=== PATIENT | female | born 1995 | race Caucasian/White ===

== ENCOUNTER 2023-06-07 17:58 | Inpatient (IN) | payer OTHER, SELFPAY ==
[2023-06-07] VITALS (8 sets, daily range): BP systolic 123–164; BP diastolic 61–111
--- NOTE | 2023-06-07 14:12 | ED.GENMED ---
History of Present Illness
<Valerie Slater PA-C - Last Filed: 06/07/23 18:41>
General
Chief Complaint: Alcohol Problem
Source: patient and family
Exam Limitations: none
Time Seen by Provider: 06/07/23 14:11
Nursing documentation reviewed up to this point in time: agreed with
Travel History
Have you had any contact with someone who has COVID-19?: No
Do you have any symptoms of coronavirus? Fever > 100 degrees, chills, cough, shortness of breath, sore throat, loss of taste or smell, muscle aches, or headache?: No
History of Present Illness
History of Present Illness:
Patient is a 28-year-old female with past medical history of spinal fusion, herniated disc, asthma, who presents to the emergency department accompanied by her mother for 2 complaints. First, patient reports she is concerned she is going through
alcohol withdrawal. She reports that she typically drinks 9 shots of vodka a day. She reports that she has been doing this for months. She reports that her last drink was approximately 36 hours ago. Patient reports that she has been feeling
increasingly shaky and fidgety. She also endorses headache, nausea, vomiting. Patient also reports seeing visual hallucinations which she says are typically weird shapes. Patient denies any auditory hallucinations. Patient denies any
hallucinations that are telling her to harm herself or anyone else. Patient reports that she was admitted to an outside hospital in March 2023 for alcohol withdrawal. Patient denies any history of alcohol withdrawal seizures. Patient reports
that she is interested in going to an alcohol rehab facility. Patient denies concern for today. Patient denies any drug use.
In addition, patient complains of dental pain. She reports that she had extraction of a tooth to her left lower ajw performed by an oral surgeon 3 weeks ago. She reports that the wound never seemed to heal. She reports she was on 2 courses of
antibiotics, 1 prescribed by her PCP and 1 prescribed by the oral surgeon. She reports the last antibiotic was clindamycin. She reports she never noticed improvement over the site even after taking the clindamycin. She reports that the site is
tender and she can also feel an area of swelling over the gingiva. Patient reports difficulty chewing on that side but denies any facial or throat swelling, denies any difficulty swallowing or shortness of breath. Patient denies any fevers or
chills.
Past History
<Valerie Slater PA-C - Last Filed: 06/07/23 18:41>
Past History
ED Past Medical History: Asthma (Exercised induced), GERD, Psychiatric (Anxiety,), Other (Chronic back pain, lumbar fusion, UTI) and Other
ED Past Surgical History: Orthopedic (Lumbar discectomy, spinal fusion, wrist surgery) and Tonsilectomy
Social History
Tobacco: Smoker
Alcohol: Occasional
Drug: None
Personal: Single
Living: with family
Employment: Employed ([employer])
Family History
Family History: Other (Noncontributory); Negative Early CAD or Sudden
Review of Systems
<Valerie Slater PA-C - Last Filed: 06/07/23 18:41>
Review of Systems
Allergies reviewed?: Yes
All Other Systems: ROS reviewed and negative except as documented in HPI and ROS
Constitutional: Reports chills; Denies fever
EENT: Reports mouth pain
Respiratory: Reports no symptoms; Denies cough or trouble breathing
Cardiac: Reports no symptoms; Denies chest pain
ABD/GI: Reports nausea and vomiting; Denies abdominal pain
: Reports no symptoms
Musculoskeletal: Reports no symptoms
Skin: Reports no symptoms
Neurological: Reports headache
Hematologic/Lymphatic: Reports no symptoms
Psychiatric: Reports hallucinations
Phy Exam
<Valerie Slater PA-C - Last Filed: 06/07/23 18:41>
Physical Exam
Physical Exam:
No significant facial swelling noted, there is evidence of a dental extraction to the left lower jaw, there is no fluctuance or drainable collection, no active drainage, no submandibular edema, there is no ttp at the base of the tongue, no elevation
of the tongue
General Physical Exam
General Presentation: mild distress and other (tearful, temulous)
General Skin: warm and dry
General Habitus: normal
General Mental: alert
General Hydration: appears well hydrated
ENT Exam
ENT Exam: EOMI, pharynx normal, neck supple, normocephalic and other (dry oral mucosa)
Additional ENT: tongue fasciculations noted
Eye Exam
Eye Exam: PERRL, cornea clear and conjunctiva normal
Cardiovascular Exam
Cardiovascular Exam: no edema, no murmur, normal peripheral pulses and tachycardia
Pulmonary Exam
Pulmonary Exam: lungs clear, no respiratory distress, no rales, no crackles, no rhonchi, no stridor, no wheezing and no cough
Gastrointestinal Exam
Gastrointestinal Exam: normal bowel sounds, non tender, soft, no organomegaly, no pulsatile mass and non distended
Neurological Exam
Neurological Exam: alert, oriented x3, no motor deficits and speech normal
Musculoskeletal Exam
Musculoskeletal Exam: full ROM and no edema
Skin Exam
Skin Exam: normal color, warm/dry, no rash and no petechia
Psychiatric Exam
Psychiatric Exam: anxious
Scores
<Valerie Slater PA-C - Last Filed: 06/07/23 18:41>
Withdrawal Assessment of Alcohol
Withdrawal Assessment Completed?: Yes
Nausea and Vomiting: Intermittent nausea with dry heaves
Tactile Disturbances: None
Tremor: Severe, even with arms not extended
Auditory Disturbances: Mild harshness or ability
Paroxysmal Sweats: No sweat visible
Visual Disturbances: Moderately severe hallucinations
Anxiety: Mild anxiety
Headache, Fullness in Head: Mild
Agitation: Moderately fidgety and restless
Orientation and clouding of sensorium: Oriented and can do serial additions
Total CIWA Score: 24
Alcohol Withdrawal Medication Recommendation: Equal to MSAS >11. Lorazepam 2-4mg IV NOW and re-assess q1hr
Course
<Valerie Slater PA-C - Last Filed: 06/07/23 18:41>
Orders/Labs/Results
Orders:
Orders
06/07/23 14:28
Urinalysis Reflex To Culture Urgent
Urine Drug Abuse Screen Urgent
06/07/23 14:30
0.9% Sodium Chloride 1000 ml [Nss] 1,000 ml IV 1,000 mls/hr
Lorazepam [Ativan] 1 mg IV NOW STA
Ondansetron Injectable [Zofran] 4 mg IV NOW STA
06/07/23 14:38
Thiamine Injection 200 mg IV NOW STA
06/07/23 Dinner
Regular
06/07/23 15:50
Alcohol Urgent
Complete Blood Count/With Diff Urgent
Comprehensive Metabolic Panel Urgent
Magnesium Urgent
Phosphorus Urgent
Prothrombin Time Urgent
06/07/23 16:32
Lorazepam [Ativan] 2 mg IV NOW STA
06/07/23 16:54
Clindamycin 600 mg/50 ml [Cleocin] 600 mg in 50 ml IV NOW
06/07/23 17:14
Admit/Transfer Patient As Directed
Co-Sign Provider:
Level of Care: Inpatient admission
Assign to:: IMU- Intermediate Care
Physician / Group: oxana
Diagnosis: alcohol withdrawal
Reason for Hospitalization: alcohol withdrawal
Expected length of stay greater than two midnights?: Yes
ELOS- Estimated Length of Stay in days: 2
I certify the patient meets the requirements for IP care: Yes
06/07/23 17:15
Code Status As Directed
Resuscitation Status: Full Code
06/07/23 17:16
0.9% Sodium Chloride [Nss (Preservative Free)] See Protocol IV PRN PRN
FOLic ACID [Folvite] 1 mg 0.9% Sodium Chloride 50 ml [Nss] 50 ml IV DAILYPRN
Lorazepam [Ativan] 1 mg IV Q1HPRN PRN
Lorazepam [Ativan] 1 mg PO Q2HPRN PRN
Lorazepam [Ativan] 2 mg IV Q1HPRN PRN
Phenobarbital Sodium [Phenobarbital] 260 mg 0.9% Sodium Chloride 100 ml [Nss] 100 ml IV NOW
MSAS SCORE As Directed
MSAS Score 0-4: Repeat MSAS every 2 hours until 0-4 for three consecutive assessments, then every 4 hours x 48
hours.
MSAS Score 5-7: For MILD withdrawl symptoms. Repeat MSAS and RASS every 2 hours
MSAS Score 8-11: For MODERATE withdrawal symptoms. Repeat MSAS and RASS every 1 hour. Consider ICU or IMU
level of care.
MSAS Score > 11: For SEVERE withdrawal symptoms. Repeat MSAS and RASS every 1 hour. Notify provider, consider
ICU level of care.
MSAS Additional Instructions: If no improvement or no decrease in score from severe to moderate within 12
hours, consult psychiatry
MSAS Notify Provider: Notify provider if patient requires more than 10 mg of Lorazepam in eight hour period.
06/07/23 17:19
HCG, Serum Qualitative Screen Urgent
Lipase Urgent
06/07/23 17:20
Test Result ONCE
06/07/23 18:27
0.9% Sodium Chloride 1000 ml [Nss] 1,000 ml IV 100 mls/hr
Acetaminophen [Tylenol] 650 mg PO Q4HPRN PRN
HYDROmorphone [Dilaudid] 0.5 mg IV Q4HPRN PRN
Lurasidone HCl [Latuda] 40 mg PO QPM
Ondansetron Injectable [Zofran] 4 mg IV Q6HPRN PRN
06/07/23 18:27
ORAL MAXILLO FACIAL CONSULT Routine
Consulting Provider: Heather Thomas
Was physician already notified: Yes
Activity As Directed
Activity Level: As Tolerated
Vital Signs As Directed
Frequency: Per unit guidelines
DX Deep Vein Thrombosis Video Routine
06/07/23 20:00
Duloxetine Delayed Release [Cymbalta Delayed Release] 20 mg PO BID
Heparin 5,000 units SC Q12
Pantoprazole [Protonix] 40 mg PO BID
lamotrigine 25 mg PO BID
06/08/23 06:00
Complete Blood Count/With Diff IN AM
Comprehensive Metabolic Panel IN AM
06/08/23 08:00
CT Facial Bones W/ Iv Contrast Routine
Reason For Exam: tooth abscess
FOLic ACID [Folvite] 1 mg PO DAILY
Phenobarbital Sodium [Phenobarbital] 97.5 mg IV TID
norethindrone-e.estradiol-iron [Aurovela Fe 1-20 (28)] 1 tablet PO DAILY
valacyclovir 1,000 mg PO DAILY
06/10/23 08:00
Phenobarbital [Luminal] 64.8 mg PO TID
06/12/23 08:00
Phenobarbital [Luminal] 32.4 mg PO TID
Abnormal Lab Results
06/07/23
15:50
WBC 19.4 H 10^3/uL
(4.8-10.8)
MCH 32.6 H pg
(27.0-31.0)
Abs Immat Gran (auto) 0.1 H 10^3/uL
(0-0.05)
Absolute Neuts (auto) 16.5 H 10^3/uL
(1.4-6.5)
Absolute Monos (auto) 1.3 H 10^3/uL
(0.1-0.6)
Neutrophils % 85.0 H %
(42.2-75.2)
Lymphocytes % 7.2 L %
(20.5-51.1)
Sodium 131 L mmol/L
(135-145)
Chloride 97 L mmol/L
(98-107)
BUN 18 H mg/dl
(7-17)
Creatinine 1.1 H mg/dL
(0.6-1.0)
Glucose 121 H mg/dl
(70-99)
AST 51 H U/L
(14-36)
ALT 42 H U/L
(0-35)
Total Protein 8.3 H g/dl
(6.3-8.2)
06/07/23 15:50
06/07/23 15:50
Vital Signs
Initial and Last Documented VS:
Initial Vital Signs
Pulse Resp BP Pulse Ox
121 16 164/111 100
06/07/23 13:55 06/07/23 13:55 06/07/23 13:55 06/07/23 13:55
Last Documented Vital Signs
Pulse Resp BP Pulse Ox
113 28 128/61 99
06/07/23 16:45 06/07/23 16:45 06/07/23 16:00 06/07/23 16:45
Faheemlt;Tan Herman, DO - Last Filed: 06/07/23 16:35>
Orders/Labs/Results
Orders:
Orders
06/07/23 14:28
Urinalysis Reflex To Culture Urgent
Urine Drug Abuse Screen Urgent
06/07/23 14:30
0.9% Sodium Chloride 1000 ml [Nss] 1,000 ml IV 1,000 mls/hr
Lorazepam [Ativan] 1 mg IV NOW STA
Ondansetron Injectable [Zofran] 4 mg IV NOW STA
06/07/23 14:38
Thiamine Injection 200 mg IV NOW STA
06/07/23 Dinner
Regular
06/07/23 15:50
Alcohol Urgent
Complete Blood Count/With Diff Urgent
Comprehensive Metabolic Panel Urgent
Magnesium Urgent
Phosphorus Urgent
Prothrombin Time Urgent
06/07/23 16:32
Lorazepam [Ativan] 2 mg IV NOW STA
06/07/23 16:54
Clindamycin 600 mg/50 ml [Cleocin] 600 mg in 50 ml IV NOW
06/07/23 17:14
Admit/Transfer Patient As Directed
Co-Sign Provider:
Level of Care: Inpatient admission
Assign to:: IMU- Intermediate Care
Physician / Group: oxana
Diagnosis: alcohol withdrawal
Reason for Hospitalization: alcohol withdrawal
Expected length of stay greater than two midnights?: Yes
ELOS- Estimated Length of Stay in days: 2
I certify the patient meets the requirements for IP care: Yes
06/07/23 17:15
Code Status As Directed
Resuscitation Status: Full Code
06/07/23 17:16
0.9% Sodium Chloride [Nss (Preservative Free)] See Protocol IV PRN PRN
FOLic ACID [Folvite] 1 mg 0.9% Sodium Chloride 50 ml [Nss] 50 ml IV DAILYPRN
Lorazepam [Ativan] 1 mg IV Q1HPRN PRN
Lorazepam [Ativan] 1 mg PO Q2HPRN PRN
Lorazepam [Ativan] 2 mg IV Q1HPRN PRN
Phenobarbital Sodium [Phenobarbital] 260 mg 0.9% Sodium Chloride 100 ml [Nss] 100 ml IV NOW
MSAS SCORE As Directed
MSAS Score 0-4: Repeat MSAS every 2 hours until 0-4 for three consecutive assessments, then every 4 hours x 48
hours.
MSAS Score 5-7: For MILD withdrawl symptoms. Repeat MSAS and RASS every 2 hours
MSAS Score 8-11: For MODERATE withdrawal symptoms. Repeat MSAS and RASS every 1 hour. Consider ICU or IMU
level of care.
MSAS Score > 11: For SEVERE withdrawal symptoms. Repeat MSAS and RASS every 1 hour. Notify provider, consider
ICU level of care.
MSAS Additional Instructions: If no improvement or no decrease in score from severe to moderate within 12
hours, consult psychiatry
MSAS Notify Provider: Notify provider if patient requires more than 10 mg of Lorazepam in eight hour period.
06/07/23 17:19
HCG, Serum Qualitative Screen Urgent
Lipase Urgent
06/07/23 17:20
Test Result ONCE
06/07/23 18:27
0.9% Sodium Chloride 1000 ml [Nss] 1,000 ml IV 100 mls/hr
Acetaminophen [Tylenol] 650 mg PO Q4HPRN PRN
HYDROmorphone [Dilaudid] 0.5 mg IV Q4HPRN PRN
Lurasidone HCl [Latuda] 40 mg PO QPM
Ondansetron Injectable [Zofran] 4 mg IV Q6HPRN PRN
06/07/23 18:27
ORAL MAXILLO FACIAL CONSULT Routine
Consulting Provider: Heather Thomas
Was physician already notified: Yes
Activity As Directed
Activity Level: As Tolerated
Vital Signs As Directed
Frequency: Per unit guidelines
DX Deep Vein Thrombosis Video Routine
06/07/23 20:00
Duloxetine Delayed Release [Cymbalta Delayed Release] 20 mg PO BID
Heparin 5,000 units SC Q12
Pantoprazole [Protonix] 40 mg PO BID
lamotrigine 25 mg PO BID
06/08/23 06:00
Complete Blood Count/With Diff IN AM
Comprehensive Metabolic Panel IN AM
06/08/23 08:00
CT Facial Bones W/ Iv Contrast Routine
Reason For Exam: tooth abscess
FOLic ACID [Folvite] 1 mg PO DAILY
Phenobarbital Sodium [Phenobarbital] 97.5 mg IV TID
norethindrone-e.estradiol-iron [Aurovela Fe 1-20 (28)] 1 tablet PO DAILY
valacyclovir 1,000 mg PO DAILY
06/10/23 08:00
Phenobarbital [Luminal] 64.8 mg PO TID
06/12/23 08:00
Phenobarbital [Luminal] 32.4 mg PO TID
Abnormal Lab Results
06/07/23
15:50
WBC 19.4 H 10^3/uL
(4.8-10.8)
MCH 32.6 H pg
(27.0-31.0)
Abs Immat Gran (auto) 0.1 H 10^3/uL
(0-0.05)
Absolute Neuts (auto) 16.5 H 10^3/uL
(1.4-6.5)
Absolute Monos (auto) 1.3 H 10^3/uL
(0.1-0.6)
Neutrophils % 85.0 H %
(42.2-75.2)
Lymphocytes % 7.2 L %
(20.5-51.1)
Sodium 131 L mmol/L
(135-145)
Chloride 97 L mmol/L
(98-107)
BUN 18 H mg/dl
(7-17)
Creatinine 1.1 H mg/dL
(0.6-1.0)
Glucose 121 H mg/dl
(70-99)
AST 51 H U/L
(14-36)
ALT 42 H U/L
(0-35)
Total Protein 8.3 H g/dl
(6.3-8.2)
06/07/23 15:50
06/07/23 15:50
Vital Signs
Initial and Last Documented VS:
Initial Vital Signs
Pulse Resp BP Pulse Ox
121 16 164/111 100
06/07/23 13:55 06/07/23 13:55 06/07/23 13:55 06/07/23 13:55
Last Documented Vital Signs
Pulse Resp BP Pulse Ox
113 28 128/61 99
06/07/23 16:45 06/07/23 16:45 06/07/23 16:00 06/07/23 16:45
<Valerie Slater PA-C - Last Filed: 06/07/23 18:41>
*Critical Care Note
Total Time (30-74mins, 75-104mins- exclusive of procedures): Not Applicable
<Valerie Slater PA-C - Last Filed: 06/07/23 18:41>
Update Note
Update Note:
28 yo female p/w alcohol withdrawal as well as concern for left dental infection that has not improved despite 2 rounds of oral antibiotics. Alcohol withdrawal symptoms including headache, nausea, vomiting, hallucinations, shakiness. On arrival,
pt is hypertensive, tachycardic. On exam, pt is tremulous, there is no evidence of drainable dental abscess at this time. Labs were obtained and are notable for a leukocytosis of 19.4 with left shift, hypernatremia to 131, mildly elevated LFTs.
Pt given a total of 3mg of Ativan IV, ondansetron, IVF, thiamine with improvement in her withdrawal symptoms. Pt also given IV clindamycin for presumed dental infection. Pt will require admission for further treatment. Pt and her mother aware of
the plan and agree.
ED Attending Note
<Valerie Slater PA-C - Last Filed: 06/07/23 18:41>
-
Portions of this chart may have been created with voice recognition software.� Occasional wrong word or��sound alike� substitutions may have occurred due to the inherent limitations of voice recognition software.
<Tan Herman DO - Last Filed: 06/07/23 16:35>
ED Attending Note
Patient seen and examined by attending physician: Yes
ED Attending Note:
I have reviewed and agree with history and treatment plan by Valerie Slater. My exam reveals 28-year-old female with tachycardia, appears jittery, appears alcohol withdrawal. Left lower jaw with recent dental extraction, no pus or abscess noted, no
swelling. Admit for treatment of alcohol withdraw and dental infection.
Discharge Plan
Departure
Patient Disposition: Admit
Date of Disposition: 06/07/23
Time of Disposition: 16:49
Presentation/result/management discussed w/ accepting MD/DO: Hospitalist
Discharge Problem:
Alcohol withdrawal, Dental infection
Interventions
Interventions:
*Risk Screen - Suicide Last Done: 06/07/23 14:17
*General Assessment Last Done: 06/07/23 18:37
*Neglect/Abuse Screening Last Done: 06/07/23 14:17
ED- Fall Risk Assessment Last Done: 06/07/23 18:37
*ED COVID-19 Vaccine History Last Done: 06/07/23 13:55
*Nursing Disposition Last Done: 06/07/23 18:37
ED- Neurological Assessment Last Done: 06/07/23 14:43
ED-Psychological Assessment Last Done: 06/07/23 14:43
Discharge Date and Time
Discharge Date/Time: 06/07/23 18:37
[2023-06-07] MEDS: NSS 1000 IV ×2 (15:27→19:05)
[2023-06-07] MEDS: ZOFRAN 4 MG IV (15:28)
[2023-06-07] MEDS: ATIVAN 1 MG IV ×3 (15:28→22:37)
[2023-06-07] MEDS: THIAMINE INJECTION 200 MG IV (15:28)
[2023-06-07 15:59] LABS: % Basophils 0.5 % (0-2); % Eosinophils 0.1 % (0-6); % Immature Granulocytes 0.4 % (0-0.5); % Lymphocytes 7.2 % (20.5-51.1); % Monocytes 6.8 % (1.7-9.3); Absolute Basophils 0.1 10^3/uL (0-0.2); Absolute Immature Granulocytes 0.1 10^3/uL (0-0.05); Absolute Lymphocytes 1.4 10^3/uL (1.2-3.4); Absolute Monocytes 1.3 10^3/uL (0.1-0.6); Absolute Neutrophils 16.5 10^3/uL (1.4-6.5); Hematocrit 42.1 % (37.0-47.0); Hemoglobin 14.8 g/dL (12.0-16.0); Mean Corp Hgb Conc. 35.2 g/dL (33.0-37.0); Mean Corpuscular Hgb 32.6 pg (27.0-31.0); Mean Corpuscular Volume 92.7 fL (81.0-99.0); Mean Platelet Volume 9.7 fL (7.4-10.4); Nucleated Red Blood Cells % 0 %; Platelet Count 345 10^3/uL (130-400); Red Blood Cell Count 4.54 10^6/uL (4.20-5.40); White Blood Cell Count 19.4 10^3/uL (4.8-10.8)
[2023-06-07 16:07] LABS: INR 1.05; PT 13.5 Sec (11.4-14.6)
[2023-06-07 16:20] LABS: ALT (SGPT) 42 U/L (0-35); AST (SGOT) 51 U/L (14-36); Alkaline Phosphatase 79 U/L (38-126); Blood Urea Nitrogen 18 mg/dl (7-17); Calcium 9.7 mg/dl (8.4-10.2); Carbon Dioxide 24 mmol/L (22-30); Chloride 97 mmol/L (98-107); Glucose 121 mg/dl (70-99); Magnesium 2.2 mg/dl (1.6-2.3); Phosphorus 3.4 mg/dl (2.5-4.5); Sodium 131 mmol/L (135-145); Total Protein 8.3 g/dl (6.3-8.2); eGFR > 60.00
[2023-06-07 16:21] LABS: Alcohol None Detected
[2023-06-07] MEDS: ATIVAN 2 MG IV (16:56)
--- NOTE | 2023-06-07 17:22 | HPS.HSE ---
Addendum entered and electronically signed by Roland Leonard MD 06/07/23 17:48:
Consulted maxillofacial surgery and ordered CT with IV contrast.
Original Note:
Family Physician
-
Family Physician: Gaey Campos
Chief Complaint
-
alcohol withdrawal
History of Present Illness
28-year-old female past medical history of lumbar spinal fusion, herniated disc, asthma, GERD, exercise-induced anxiety, multiple psychiatric issues including OCD/anxiety/bipolar, presenting for concern for alcohol withdrawal. She typically drinks
9 shots of vodka per day which she has been doing for months. Her last drink was 36 hours ago. She has been increasingly shaky and fidgety over the past few days. She also has headache, nausea and vomiting and blurry vision. She does have some
abdominal bloating. She reports seeing visual hallucinations which are typically weird shapes. She denies any auditory hallucinations. She states she was admitted to an outside hospital in March 2023 for alcohol withdrawal. Denies any history
of alcohol withdrawal seizures. She denies any drug use. She is interested in rehab.
Patient also complains of dental pain. She had extraction of tooth in her left lower jaw performed by an oral surgeon 3 weeks ago. Oral surgeon is at [facility] oral surgery. This was complicated by tooth abscess as per x-ray
performed by the oral surgeon and she was treated with a course of antibiotics. She completed a second course of clindamycin by her primary care physician which she finished a week ago. Swelling has improved a little bit but she continues to have
significant amount of pain. She has chills but denies fever. She does have drainage. She has pain with chewing on that side. Denies any shortness of breath.
Medical History
Past Medical History
Past Medical History: Reports Other (Orthopedic (Lumbar discectomy, spinal fusion, wrist surgery) and Tonsilectomy)
Past Surgical History: Reports None
Social History
Tobacco: Non-smoker
Alcohol: Daily
Drug: None
Family History
Family History: Not pertinent
Allergies / Home Medications
Allergies reflects when Allergies were last updated in [facility].
Home Medications with original date entered in [facility]
Allergy/Medication List:
Allergies
Allergy/AdvReac Type Severity Reaction Status Date / Time
penicillin V Allergy Severe Hives Verified 04/06/23 15:07
cephalexin [From Keflex] Allergy Rash Verified 04/06/23 15:07
peanut Allergy Hives Verified 04/06/23 15:07
Home Medications
duloxetine 20 mg capsule,delayed release 20 mg PO BID 06/07/23
lamotrigine 25 mg tablet 25 mg PO BID 06/07/23
lurasidone 40 mg tablet 40 mg PO QPM 06/07/23
norethindrone 1 mg-ethinyl estradiol 20 mcg (21)-iron 75 mg (7) tablet (Aurovela Fe 1-20 (28)) 1 tab PO DAILY 06/07/23
valacyclovir 1 gram tablet 1,000 mg PO DAILY 06/07/23
Review of Systems
-
History Source: Patient
A 12 point ROS was completed and negative except as noted: Yes
Constitutional: Reports See HPI
EENT: Reports No Symptoms
Respiratory: Reports No Symptoms
Cardiac: Reports No Symptoms
Abdomen/GI: Reports See HPI
: Reports No Symptoms
Musculoskeletal: Reports No Symptoms
Skin: Reports No Symptoms
Neurological: Reports No Symptoms
Endocrine: Reports No Symptoms
Hematologic/Lymphatic: Reports No Symptoms
Psych: Reports No Symptoms
Physical Exam
Vital Signs
Vital Signs
Pulse Resp BP Pulse Ox
113 28 128/61 99
06/07/23 16:45 06/07/23 16:45 06/07/23 16:00 06/07/23 16:45
Physical Exam
General: Well Developed, Well Nourished and No Apparent Distress
HEENT: NormoCephalic, Moist mucous membranes and Atraumatic
Respiratory: Clear
Cardiac: S1/S2 and Regular Rhythm; No Murmur or Rub
GI: Soft, Non Tender, Non Distended and Normal Bowel Sounds; No Organomegaly
Rectal: Deferred by Provider
Musculoskeletal: No Clubbing, No Cyanosis and No Edema
Skin: No Rash
Neuro: Nonfocal/grossly intact
Laboratory Results
-
06/07/23 15:50
06/07/23 15:50
Laboratory Results
PT 13.5 Sec (11.4-14.6) 06/07/23 15:50
INR 1.05 06/07/23 15:50
Total Bilirubin 1.0 mg/dl (0.2-1.3) 06/07/23 15:50
AST 51 U/L (14-36) H 06/07/23 15:50
ALT 42 U/L (0-35) H 06/07/23 15:50
Alkaline Phosphatase 79 U/L (38-126) 06/07/23 15:50
Data Reviewed
-
Lab Data: Labs Reviewed by me
Old Records: Reviewed
Impression/Plan
-
IMPRESSION:
PLAN:
# Alcohol withdrawal
# Transaminitis secondary to alcohol use
-Thiamine and folate
-IV fluids
-Start phenobarbital protocol
-Alcohol withdrawal protocol
-Zofran
-Check beta-hCG given age
# Possible alcoholic gastritis
-Check lipase
-Protonix 40 twice daily for possible alcoholic gastritis
# Recent tooth extraction complicated by tooth abscess
-Start IV clindamycin
-Check panelipse x-ray and depending on result may require maxillofacial CT/oral surgery consult
-Dilaudid for pain
# Acute kidney injury prerenal
-IV fluids
History of herniated disc status post spinal fusion
Exercise-induced asthma
GERD
-On omeprazole daily
Anxiety/OCD/bipolar disorder
-Continue duloxetine, lamotrigine, lurasidone,
History of cold sores in mouth
-Continue valacyclovir
Full code
DVT prophylaxis�heparin
Regular diet
[2023-06-07] MEDS: CLEOCIN 50 IV (17:51)
--- NOTE | 2023-06-07 18:37 | CON.ORS ---
Consultation - Oral Surgery
Subjective
28year old female with past medical history of asthma, GERD, anxiety, OCD, bipolar disorder presented for alcoholic withdrawal and consult for possible infection from recent dental extraction. Patient reports that she had an extraction of tooth #19
completed at [facility] about 3 weeks ago due to an infection which she took antibiotics for twice. She reports the area still hurts and she thinks it is not healing normally since food it getting stuck in the hole and
there is a tender spot on the front when she touches it. She denies swelling of her face or neck, no dysphagia, dyspnea, orthopnea at home. She is tolerating PO. Patient denies symptoms of acute infection. No nausea, vomiting, fever or chills.
Past Medical History
Past Medical History: Asthma, GERD and Psychiatric
Past Surgical History: Orthopedic, Tonsilectomy and Other (spinal surgery)
Family History: Not Pertinent
Alcohol: Daily
Drug: None
Tobacco: Non-smoker
Medications / Allergies
Allergies
Allergy/AdvReac Type Severity Reaction Status Date / Time
penicillin V Allergy Severe Hives Verified 04/06/23 15:07
cephalexin [From Keflex] Allergy Rash Verified 04/06/23 15:07
peanut Allergy Hives Verified 04/06/23 15:07
Active Medications
Generic Name Dose Route Start Last Admin
Trade Name Freq PRN Reason Stop Dose Admin
Acetaminophen 650 mg 06/07/23 18:27
Acetaminophen 325 Mg Tablet PO 07/05/23 18:26
Q4HPRN PRN
mild pain/VIEYRA/temp> 100.4F
Duloxetine HCl 20 mg 06/07/23 20:00
Duloxetine Delayed Release 20 Mg Capsule PO 07/05/23 19:59
BID LANDON
Folic Acid 1 mg 06/08/23 08:00
Folic Acid 1 Mg Tablet PO 07/06/23 07:59
DAILY LANDON
Heparin Sodium 5,000 units 06/07/23 20:00
Heparin 5,000 Units/Ml 1 Ml Vial SC 07/05/23 19:59
Q12 LANDON
Hydromorphone HCl 0.5 mg 06/07/23 18:27
Hydromorphone 0.5 Mg/0.5 Ml Syringe IV 06/21/23 18:26
Q4HPRN PRN
severe pain
Phenobarbital Sodium 260 mg/ 104 mls @ 416 mls/hr 06/07/23 17:16
Sodium Chloride IV 06/07/23 17:30
NOW STA
Folic Acid 1 mg/ Sodium 50.2 mls @ 200.8 mls/hr 06/07/23 17:16
Chloride IV 07/05/23 17:15
DAILYPRN PRN
if NPO
Sodium Chloride 1,000 mls @ 100 mls/hr 06/07/23 18:27
Nss IV
.Q10H LANDON
Lorazepam 1 mg 06/07/23 17:16
Lorazepam 1 Mg Tablet PO 07/05/23 17:15
Q2HPRN PRN
MSAS 5-7
Lorazepam 1 mg 06/07/23 17:16
Lorazepam 2 Mg/Ml Vial IV 07/05/23 17:15
Q1HPRN PRN
MSAS 8-11
Lorazepam 2 mg 06/07/23 17:16
Lorazepam 2 Mg/Ml Vial IV 07/05/23 17:15
Q1HPRN PRN
MSAS > 11
Lurasidone HCl 40 mg 06/07/23 18:27
Lurasidone Hcl 40 Mg Tablet PO 07/05/23 18:26
QPM LANDON
Non-Formulary Medication 25 mg 06/07/23 20:00
Lamotrigine PO 07/05/23 19:59
BID LANDON
Non-Formulary Medication 1 tablet 06/08/23 08:00
Norethindrone-E.Estradiol-Iron [Aurovela Fe 1-20 (28)] PO 07/06/23 07:59
DAILY LANDON
Non-Formulary Medication 1,000 mg 06/08/23 08:00
Valacyclovir PO 07/06/23 07:59
DAILY LANDON
Ondansetron HCl 4 mg 06/07/23 18:27
Ondansetron 4 Mg/2 Ml Vial IV 07/05/23 18:26
Q6HPRN PRN
nausea and vomiting
Pantoprazole Sodium 40 mg 06/07/23 20:00
Pantoprazole 40 Mg Delayed Release Tablet PO 07/05/23 19:59
BID LANDON
Phenobarbital Sodium 64.8 mg 06/10/23 08:00
Phenobarbital 32.4 Mg Tablet PO 06/11/23 22:01
TID LANDON
Phenobarbital Sodium 32.4 mg 06/12/23 08:00
Phenobarbital 32.4 Mg Tablet PO 06/13/23 22:01
TID LANDON
Phenobarbital Sodium 97.5 mg 06/08/23 08:00
Phenobarbital (65 Mg/Ml) 1 Ml Vial IV 06/09/23 22:01
TID LANDON
Sodium Chloride 0 ml 06/07/23 17:16
Sodium Chloride 0.9% (Preservative Free) 10 Ml Vial IV 07/05/23 17:15
PRN PRN
To dilute IV Ativan
Protocol
Review of Systems
Eyes: Reports No Symptoms; Denies Blurry Vision or Double Vision
ENT: Reports Tooth Pain (pain and tenderness over recent extraction site)
Cardiovascular: Reports No Symptoms
Respiratory: Reports No Symptoms
Genitourinary: Reports Deferred
Neurological: Reports No Symptoms
Psychological: Reports Anxiety
Endocrine: Reports No Symptoms
Vital Signs
Pulse Resp BP Pulse Ox
113 28 128/61 99
06/07/23 16:45 06/07/23 16:45 06/07/23 16:00 06/07/23 16:45
Physical Exam
General: Awake, Alert, Oriented x 3 and Not in Acute Distress
Extra-oral Exam: V2 10/10 Bilaterally, V3 10/10 Bilaterally, Temporomandibular Joint Functions Smoothly & Evenly and Other (No extraoral induration or fluctuance); Negative Edema (No extraoral facial, submandibular, submental or cervical edema),
Erythema (No extraoral facial, submandibular, submental or cervical erythema), Tenderness to Palpation (No extraoral facial, submandibular, submental or cervical tenderness to palpation), Lymphadenopathy, Clicking, Popping, Crepitus or Signs of
Acute Infection
Intra-oral Exam: Erythema (localized erythema over the buccal of site #19 due to sharp edge of alveolar bone over site #19 with tenderness to palpation but no signs of infection), Missing Teeth (extraction of tooth #19 recently and healing well and
normally), Floor of Mouth Soft Without Elevation, Oropharynx Clear, Mallampati Class 1 and Other (Extraction site #19 healing normally and well with pink healthy attached gingiva around the site without purulent discharge from site, small area of
erythema with tenderness to palpation along the buccal of site #19 due to sharp edge of alveolar bone in area, no exposed buccal or lingual bone at #19); Negative Edema (No intraoral edema ), Signs of Acute Infection (No signs of intraoral
infection, no purulent discharge from any area, floor of the mouth and left mandibular vestibule shows no induration, fluctuance or elevation), Purulent Discharge, Gingival Abscesses or Fistulas, Induration or Fluctuance
Imaging Results
CT scan facial bone with IV Contrast 06/08/2023 shows
There is a lucency and defect in the left mandible, in the area of recent tooth extraction. The lucency measures approximately 1.6 cm CC x 1.0 AP x 1.2 cm TRV and has relatively smooth margins. There is a tiny density along the lateral aspect of the
opening - which is the bony spicule/sharp edge of alveolar bone and also a small calcification seen within the area of extraction, suggesting a tiny residual loose body - which is normal interproximal bone that is loose in the extraction site.
Minimal soft tissue swelling and decreased attenuation lateral to the left mandible� at the site of the tooth extraction� suggests the possibility of a small amount of fluid lateral to the defect, and may represent a tiny fluid collection or abscess
measuring 1 x 0.5 cm. Seen on axial image 16 series 201.
No other fluid collection. No other focal area of abnormality. No other soft tissue mass. No significant adenopathy.
No fracture or dislocation. The sinuses are clear. Visualized calvarium intact.
IMPRESSION:
The lucency and defect in the left mandible in the area of recent tooth extraction is fairly well-defined as outlined above. There is a tiny density centrally in the defect, suggesting the possibility of a residual loose body which may cause
persistent irritation or inflammation.
Additionally there is the possibility of a small fluid collection lateral to the defect which may represent a small abscess measuring [address] Results
[address] scan facial bone with IV Contrast 06/08/2023 shows
There is a lucency and defect in the left mandible, in the area of recent tooth extraction. The lucency measures approximately 1.6 cm CC x 1.0 AP x 1.2 cm TRV and has relatively smooth margins. There is a tiny density along the lateral aspect of the
opening - which is the bony spicule/sharp edge of alveolar bone and also a small calcification seen within the area of extraction, suggesting a tiny residual loose body - which is normal interproximal bone that is loose in the extraction site.
Minimal soft tissue swelling and decreased attenuation lateral to the left mandible� at the site of the tooth extraction� suggests the possibility of a small amount of fluid lateral to the defect, and may represent a tiny fluid collection or abscess
measuring 1 x 0.5 cm. Seen on axial image 16 series 201.
No other fluid collection. No other focal area of abnormality. No other soft tissue mass. No significant adenopathy.
No fracture or dislocation. The sinuses are clear. Visualized calvarium intact.
IMPRESSION:
The lucency and defect in the left mandible in the area of recent tooth extraction is fairly well-defined as outlined above. There is a tiny density centrally in the defect, suggesting the possibility of a residual loose body which may cause
persistent irritation or inflammation.
Additionally there is the possibility of a small fluid collection lateral to the defect which may represent a small abscess measuring 1 x 0.5 cm.
Assessment / Plan
28year old female consulted for possible infection from recent dental extraction at site #19. Based on physical and radiographic examination, there is not intraoral or extraoral dental infection and extraction site #19 is healing well and normally
with 1 small area of sharp alveolar bone along the buccal of site #19 that can be smoothed out to reduce tenderness to the area for patient which can be done as an outpatient after discharge. The CT scan facial bone with IV Contrast 06/08/2023 shows
the recent extraction site #19 which shows a tiny density along the lateral aspect which is the bony spicule/sharp edge of alveolar bone that is appreciated on exam where there is localized tenderness over this area and erythema but does not have
any induration, fluctuance or signs of an abscess or cellulitis in the area. There is also a small calcification seen within the area of extraction which is normal interproximal bone that is loose in the extraction site and not concerning for
osteomyelitis or any other infection. The soft tissue swelling at the lateral aspect of the left mandible is considered normal after having a recent extraction completed and there is no abscess on the left mandible but likely inflammation due to the
sharp edge of alveolar bone or bony spicule in the area of site #19. The sharp edge of alveolar bone along the buccal of site #19 can be smoothed out and removed to reduce tenderness to the area for patient which can be done as an outpatient after
discharge. I explained this to the patient and recommended for her to follow-up with the oral surgeon who performed the procedure due to continuity of surgical care. There is no intraoral cause for the patient's leukocytosis.
1. No intraoral cause of leukocytosis and no intraoral infection, recent extraction site #19 healing well
2. Patient can follow-up as outpatient for localized alveoplasty along buccal of site #19 to smooth the bone in the area for comfort and to reduce inflammation in the area
Data Reviewed
Diagnostic Imaging: Image personally visualized and interpreted, Report Reviewed by me and Discussed with Physician
CT Scan: Image personally visualized and interpreted, Report Reviewed by me and Discussed with Physician
Labs: Labs Reviewed by me, Discussed with Physician and Discussed with Patient
[2023-06-07] MEDS: PROTONIX 40 MG PO (19:51)
[2023-06-07] MEDS: HEPARIN 5000 UNITS SC (19:53)
[2023-06-07] MEDS: PHENOBARBITAL 104 MG IV (21:07)
[2023-06-07] MEDS: LAMICTAL 25 MG PO (21:11)
[2023-06-07] MEDS: LATUDA 40 MG PO (21:11)
[2023-06-07] MEDS: CYMBALTA DELAYED RELEASE 20 MG PO (21:11)
[2023-06-07 23:34] LABS: HCG, Serum Qualitative Screen Negative; Lipase 62 U/L (23-300)
[2023-06-07] MEDS: TYLENOL 650 MG PO (23:50)
[2023-06-08] VITALS (11 sets, daily range): BP systolic 105–149; BP diastolic 67–103
--- NOTE | 2023-06-08 03:10 | PTCARENOTE ---
Pt's HR:100s, oob to br x1 minimal assistance. Pt denies dizziness or sob while oob. Voided 150ml, jessenia urine. Pt's HR 120s while ambulating. Pt c/o severe L tooth and 'whole body pain'. Medicated with prn dilaudid. call jin within reach. see MSAS
documentation.
[2023-06-08] MEDS: NSS 1000 IV ×2 (03:51→15:04)
[2023-06-08] MEDS: ZOFRAN 4 MG IV (03:52)
[2023-06-08] MEDS: DILAUDID 0.5 MG IV (03:53)
[2023-06-08 04:44] LABS: % Basophils 0.8 % (0-2); % Eosinophils 0.5 % (0-6); % Immature Granulocytes 0.2 % (0-0.5); % Lymphocytes 20.1 % (20.5-51.1); % Monocytes 12.1 % (1.7-9.3); % Neutrophils 66.3 % (42.2-75.2); Absolute Basophils 0.1 10^3/uL (0-0.2); Absolute Eosinophils 0.1 10^3/uL (0-0.7); Absolute Lymphocytes 2.6 10^3/uL (1.2-3.4); Absolute Monocytes 1.6 10^3/uL (0.1-0.6); Absolute Neutrophils 8.7 10^3/uL (1.4-6.5); Hematocrit 35.1 % (37.0-47.0); Hemoglobin 12.3 g/dL (12.0-16.0); Mean Corpuscular Hgb 32.7 pg (27.0-31.0); Mean Corpuscular Volume 93.4 fL (81.0-99.0); Mean Platelet Volume 9.9 fL (7.4-10.4); Nucleated Red Blood Cells % 0 %; Platelet Count 262 10^3/uL (130-400); Red Blood Cell Count 3.76 10^6/uL (4.20-5.40); Red Cell Dist. Width 12.1 % (11.5-14.5); White Blood Cell Count 13.1 10^3/uL (4.8-10.8)
[2023-06-08 04:51] LABS: Urine Albumin 1+ (Neg - Trace); Urine Bilirubin 1+ (Negative); Urine Character Clear (Clear); Urine Color Yellow; Urine Glucose Negative (Negative); Urine Ketone 1+ (Negative); Urine Leukocyte Trace (Negative); Urine Nitrite Negative (Negative); Urine Occult Blood Negative (Negative); Urine Specific Gravity 1.025 (<1.030); Urine Urobilinogen Negative (Neg - 1+)
[2023-06-08 05:17] LABS: Amphetamines Negative (Negative); Barbiturates Positive (Negative); Benzodiazepines Positive (Negative); Buprenorphine Negative (Negative); Cocaine Negative (Negative); Marijuana Negative (Negative); Methadone Negative (Negative); Methamphetamines Negative (Negative); Opiates Negative (Negative); Phencyclidine Negative (Negative); Tricyclic Antidepressants Negative (Negative)
[2023-06-08 05:37] LABS: ALT (SGPT) 35 U/L (0-35); AST (SGOT) 48 U/L (14-36); Alkaline Phosphatase 63 U/L (38-126); Blood Urea Nitrogen 19 mg/dl (7-17); Calcium 8.6 mg/dl (8.4-10.2); Carbon Dioxide 20 mmol/L (22-30); Chloride 104 mmol/L (98-107); Estimated Creatinine Clearance 71 ml/min; Glucose 95 mg/dl (70-99); Potassium 4.1 mmol/L (3.5-5.1); Sodium 132 mmol/L (135-145); Total Bilirubin 1.1 mg/dl (0.2-1.3); Total Protein 6.7 g/dl (6.3-8.2); eGFR > 60.00
[2023-06-08] MEDS: ATIVAN 1 MG IV (06:10)
[2023-06-08 06:27] LABS: Fentanyl, Urine Negative (Negative)
[2023-06-08 06:35] LABS: Urine Mucus Moderate; Urine Squamous Cell >30 /LPF (Few)
[2023-06-08 06:36] LABS: Urine Bacteria Few (Negative); Urine Red Blood Cell 0-2 /HPF (0-2)
--- NOTE | 2023-06-08 07:58 | W.PN.HOSP.TC ---
Today's Communication/Plan
-
see A/P
Assessment / Plan
Assessment / Plan
28-year-old female past medical history of lumbar spinal fusion, herniated disc, asthma, GERD, exercise-induced asthma, multiple psychiatric issues including OCD/anxiety/bipolar, presented for concern of alcohol withdrawal.�She typically drinks 9
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
abdominal bloating.� She reported seeing visual hallucinations which are typically weird shapes.�She denied any auditory hallucinations.� She was admitted to an outside hospital in March 2023 for alcohol withdrawal.� Denied any history of alcohol
withdrawal seizures.� She denied any drug use.� She is interested in rehab.
Patient also complains of dental pain.�She had extraction of tooth in her left lower jaw performed by an oral surgeon 3 weeks [employer].� Oral surgeon is at [facility] oral surgery.� This was complicated by tooth abscess as per x-ray
performed by the oral surgeon and she was treated with a course of antibiotics.�She completed a second course of clindamycin by her primary care physician which she finished a week ago [employer].�Swelling has improved a little bit but she continued to
have significant amount of pain.� She has chills but denies fever.� She does have drainage.� She has pain with chewing on that side.� Denies any shortness of breath.
A/P:
# Alcohol withdrawal
# Transaminitis secondary to alcohol use
Cont Thiamine and folate, IV fluids
Started phenobarbital protocol, cont
Cont Alcohol withdrawal protocol
Zofran PRN
beta-hCG negative
CM CS for outpt services
# Possible alcoholic gastritis
Protonix 40 twice daily for possible alcoholic gastritis
lipase WNL at 62
# Recent tooth extraction complicated by tooth abscess
Check CT facial bone with IV contrast.
Consult maxillofacial surgery
Cont IV clindamycin
Dilaudid for pain
# Acute kidney injury prerenal
SCr today 1.2, was 1.1 on admission, baseline 0.6
IV fluids
# History of herniated disc status post spinal fusion
# Exercise-induced asthma
# GERD
On omeprazole daily
# Anxiety/OCD/bipolar disorder
Continue duloxetine, lamotrigine, lurasidone,
# History of cold sores in mouth
Continue valacyclovir
Full code
DVT prophylaxis�heparin
clears for now, ADAT
d/w RN
Anticipated Discharge: > 48 hours
Subjective/Interval History
-
Date of Service: June 08, 2023
Objective Data
-
Labs:
Laboratory Results
06/08/23
04:08
WBC 13.1 H
Hgb 12.3
Hct 35.1 L
Plt Count 262 D
Sodium 132 L
Potassium 4.1
Chloride 104
Carbon Dioxide 20 L
BUN 19 H
Creatinine 1.2 H
Glucose 95
Calcium 8.6
Total Bilirubin 1.1
AST 48 H
ALT 35
Alkaline Phosphatase 63
Vital Signs:
Vital Signs
Temp Pulse Resp BP Pulse Ox
37.0 C 113 14 134/94 94
06/08/23 03:37 06/08/23 06:15 06/08/23 06:15 06/08/23 06:00 06/08/23 06:15
I&O
06/07/23 06/08/23 06/09/23
06:59 06:59 06:59
Intake Total 1200 / 1200
Output Total 150 / 150
Balance 1050 / 1050
Review of Systems
-
Abdomen/GI: Reports Nausea and Vomiting
Physical Exam
-
General: Well Developed, Well Nourished, No Apparent Distress, Conversant and Obese; Negative Respiratory Distress
HEENT: Normocephalic, Atraumatic, Nose Appears Normal and Ears Appear Normal; Negative Oxygen
Respiratory: Clear to Auscultation and Non Labored Respirations; Negative Accessory Resp Muscle Use
Cardiac: Regular Rhythm, S1/S2 and Tachycardic
GI: Soft, Nontender, Nondistended and Normal Bowel Sounds
Skin: Warm and Dry
Neuro: Awake, Alert and Oriented
Psych: Calm and Intact Judgement/Insight
Data Reviewed
-
Labs: Labs Reviewed by me
[2023-06-08] MEDS: ATIVAN 1 MG PO ×3 (08:24→21:01)
[2023-06-08] MEDS: LAMICTAL 25 MG PO ×2 (08:25→19:39)
[2023-06-08] MEDS: PROTONIX 40 MG PO ×2 (08:25→19:39)
[2023-06-08] MEDS: VALTREX 1000 MG PO (08:25)
[2023-06-08] MEDS: CYMBALTA DELAYED RELEASE 20 MG PO ×2 (08:25→19:39)
[2023-06-08] MEDS: FOLVITE 1 MG PO (08:25)
[2023-06-08] MEDS: PHENOBARBITAL 97.5 MG IV ×3 (08:25→21:01)
[2023-06-08] MEDS: HEPARIN 5000 UNITS SC ×2 (08:26→19:38)
[2023-06-08] MEDS: UNASYN IV ×3 (10:54→21:01)
[2023-06-08] MEDS: TYLENOL 650 MG PO (10:58)
--- NOTE | 2023-06-08 11:46 | PTCARENOTE ---
Pt was rec'd from plant operator/shift supervisor RN at 07:15, MSAS scores as documented, medicated with Ativan PRN, see MAR for times. Sent for CT of facial bones this am to eval for abscess. Pt resting when undisturbed, safe environment maintained.
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
--- NOTE | 2023-06-08 14:57 | PTCARENOTE ---
Pt refuses mutiple offers to get out of bed and sit in chair. States to this RN, 'I am very depressed.' Plan of care discussed with patient and attending Dr. Wells this morning upon rounds. Pt tolerated her breakfast tray of clears, asking to have
regular diet reinstated, Dr. Wells in agreement.
Mother called in to ask for update, this RN provided basic nursing update over the phone. Pt assisted to bedside to commode to urinate, unsteady on feet, some impulsive behavior noted. Bed alarm activated at this time. Continuing to monitor closely.
[2023-06-08] MEDS: ULTRAM 25 MG PO (17:39)
--- NOTE | 2023-06-08 21:15 | PTCARENOTE ---
Received pt at change of shift. Pt has notable tremors; no diaphoresis; anxious. MSAS score of 5. Administered 1 mg PO Ativan per order. Pt keeps awakening upset d/t dreams that 'feel too real' and are scaring pt. Pt able to fall back asleep.
Bed alarm on. Pt resting in bed with call jin in reach.
[2023-06-09] VITALS (11 sets, daily range): BP systolic 106–147; BP diastolic 74–106
[2023-06-09] MEDS: NSS 1000 IV ×2 (01:40→15:28)
[2023-06-09] MEDS: DILAUDID 0.5 MG IV ×5 (01:40→20:23)
[2023-06-09] MEDS: ULTRAM 25 MG PO ×3 (04:16→18:24)
[2023-06-09] MEDS: UNASYN IV ×4 (04:16→23:08)
[2023-06-09 05:23] LABS: Hematocrit 32.4 % (37.0-47.0); Hemoglobin 11.2 g/dL (12.0-16.0); Mean Corp Hgb Conc. 34.6 g/dL (33.0-37.0); Mean Corpuscular Volume 95.6 fL (81.0-99.0); Mean Platelet Volume 10.2 fL (7.4-10.4); Platelet Count 218 10^3/uL (130-400); Red Blood Cell Count 3.39 10^6/uL (4.20-5.40); Red Cell Dist. Width 11.8 % (11.5-14.5)
[2023-06-09] MEDS: ATIVAN 1 MG PO ×2 (05:26→18:25)
[2023-06-09 05:55] LABS: ALT (SGPT) 26 U/L (0-35); AST (SGOT) 33 U/L (14-36); Albumin 3.3 g/dl (3.5-5.0); Alkaline Phosphatase 53 U/L (38-126); Blood Urea Nitrogen 13 mg/dl (7-17); Calcium 8.2 mg/dl (8.4-10.2); Carbon Dioxide 21 mmol/L (22-30); Chloride 101 mmol/L (98-107); Estimated Creatinine Clearance 77 ml/min; Glucose 77 mg/dl (70-99); Magnesium 2.3 mg/dl (1.6-2.3); Potassium 3.8 mmol/L (3.5-5.1); Sodium 132 mmol/L (135-145); Total Bilirubin 0.7 mg/dl (0.2-1.3); Total Protein 5.9 g/dl (6.3-8.2); eGFR > 60.00
[2023-06-09] MEDS: FOLVITE 1 MG PO (07:37)
[2023-06-09] MEDS: LAMICTAL 25 MG PO ×2 (07:37→20:20)
[2023-06-09] MEDS: PHENOBARBITAL 97.5 MG IV ×3 (07:38→23:08)
[2023-06-09] MEDS: PROTONIX 40 MG PO ×2 (07:38→20:20)
[2023-06-09] MEDS: VALTREX 1000 MG PO (07:38)
[2023-06-09] MEDS: CYMBALTA DELAYED RELEASE 20 MG PO ×2 (07:38→20:20)
[2023-06-09] MEDS: HEPARIN 5000 UNITS SC ×2 (07:39→20:20)
--- NOTE | 2023-06-09 08:32 | W.PN.HOSP.TC ---
Addendum entered and electronically signed by Mellissa Wells MD 06/09/23 14:03:
# Alcohol Abuse, unclear dependence state or not
# Alcohol Withdrawal
Original Note:
Today's Communication/Plan
-
see A/P
Assessment / Plan
Assessment / Plan
28-year-old female past medical history of lumbar spinal fusion, herniated disc, asthma, GERD, exercise-induced asthma, multiple psychiatric issues including OCD/anxiety/bipolar, presented for concern of alcohol withdrawal.�She typically drinks 9
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
abdominal bloating.� She reported seeing visual hallucinations which are typically weird shapes.�She denied any auditory hallucinations.� She was admitted to an outside hospital in March 2023 for alcohol withdrawal.� Denied any history of alcohol
withdrawal seizures.� She denied any drug use.� She is interested in rehab.
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
have significant amount of pain.� She has chills but denies fever.� She does have drainage.� She has pain with chewing on that side.� Denies any shortness of breath.
A/P:
# Alcohol withdrawal
# Transaminitis secondary to alcohol use, resolved
Cont Thiamine and folate, IV fluids
Started phenobarbital protocol, cont
Cont Alcohol withdrawal protocol
Zofran PRN
Diet advanced to regular per pt request, pt tolerating well
beta-hCG negative
awaiting [facility], patient looking for inpatient D&A treatment facility.
# Possible alcoholic gastritis
Protonix 40 twice daily for possible alcoholic gastritis
lipase WNL at 62
# Recent tooth extraction complicated by tooth abscess
# Improved leucocytosis, suspect some component of reactive leucocytosis
CT facial bone reviewed.
Appreciate maxillofacial surgery input, No intraoral cause of leukocytosis and no intraoral infection, recent extraction site #19 healing well. Recc to follow-up as outpatient for localized alveoplasty
Cont IV Unasyn
Dilaudid for pain
# Acute kidney injury prerenal
SCr today 1.1, was 1.1 on admission, baseline 0.6
cont IV fluids
# History of herniated disc status post spinal fusion
# Exercise-induced asthma
# GERD
On omeprazole daily
# Anxiety/OCD/bipolar disorder
Continue duloxetine, lamotrigine, lurasidone,
# History of cold sores in mouth
Continue valacyclovir
Full code
DVT prophylaxis�heparin
Dispo:�awaiting [facility], patient looking for inpatient D&A treatment facility.
Anticipated Discharge: > 48 hours
Subjective/Interval History
-
Date of Service: June 09, 2023
Objective Data
-
Labs:
Laboratory Results
06/09/23
04:31
WBC 11.0 H
Hgb 11.2 L
Hct 32.4 L
Plt Count 218
Sodium 132 L
Potassium 3.8
Chloride 101
Carbon Dioxide 21 L
BUN 13
Creatinine 1.1 H
Glucose 77
Calcium 8.2 L
Total Bilirubin 0.7
AST 33
ALT 26
Alkaline Phosphatase 53
Vital Signs:
Vital Signs
Temp Pulse Resp BP Pulse Ox
37.1 C 101 23 117/81 95
06/09/23 04:09 06/09/23 06:00 06/09/23 06:00 06/09/23 06:00 06/09/23 06:00
I&O
06/08/23 06/09/23 06/10/23
06:59 06:59 06:59
Intake Total 1200 / 1200 2160 / 2160
Output Total 150 / 150 300 / 300
Balance 1050 / 1050 1860 / 1860
Review of Systems
-
Abdomen/GI: Reports Nausea
Physical Exam
-
General: Well Developed, Well Nourished, No Apparent Distress, Conversant and Obese; Negative Respiratory Distress
HEENT: Normocephalic, Atraumatic, Nose Appears Normal and Ears Appear Normal; Negative Oxygen
Respiratory: Clear to Auscultation and Non Labored Respirations; Negative Accessory Resp Muscle Use
Cardiac: Regular Rhythm, S1/S2 and Tachycardic
GI: Soft, Nontender, Nondistended and Normal Bowel Sounds
Skin: Warm and Dry
Neuro: Awake, Alert and Oriented
Psych: Calm and Intact Judgement/Insight
Data Reviewed
-
Labs: Labs Reviewed by me
--- NOTE | 2023-06-09 08:50 | PN.CDI ---
CDI
- -
CDI:
Physician Documentation Request
Admit Date: 06/07/23 17:58
Dear Doctor Priscilla,
Patient admitted with alcohol withdrawal.
ER Physician Documentation: 'she typically drinks 9 shots of vodka a day...feeling increasingly shaky and fidgety. She also endorses headache, nausea, vomiting. Patient also reports seeing visual hallucinations which she says are typically weird
shapes.'
If possible, please provide further specificity as outlined below:
1. Please specify the pattern of use, include all that apply:
- Use, with or without abuse and/or dependence
- Abuse with or without dependence
- Dependence
2. Please identify any associated manifestations
- Intoxication: with or without delirium, with or without perceptual disturbance
- With substance induced psychotic disorder: with delusions and/or hallucinations
- Withdrawal
- With substance induced sleep disorder and/or sexual dysfunction
- Other, please specify
- No manifestations
Use of terms such as suspected, likely, concern for, or probable (associated with a specific diagnosis that is being evaluated, monitored, or treated as if it exists) are acceptable and can be coded in the inpatient setting, when documented at the
time of discharge.
Thank you,
Brianna Wilson RN, BSN
CDI Specialist
Available via [place] text
Please use your independent medical judgment in providing your response.
[2023-06-09] MEDS: ATIVAN 1 MG IV (11:31)
--- NOTE | 2023-06-09 12:18 | CM ---
Chart reviewed. Met with pt and her mother at bedside
Seeking In-patient D&A treatment - working with [facility]
Received call from Disha at [facility] requesting clinicals be faxed
Faxed to [phone]
[facility] cont to follow
CM will continue to follow
--- NOTE | 2023-06-09 21:39 | PTCARENOTE ---
Received pt at change of shift. Pt c/o pain throughout her whole body rating 8/10. Discussed other methods of pain control and pt was not interested. States she does get some pain relief from the current PRN medications ordered but it keeps
returning and is concerned as to why she is experiencing this pain. MSAS 3; anxious and restless. Pt got washed up for bed - partial bath and oral care - states she feels better after. Resting in bed with call jin in reach.
[2023-06-09] MEDS: TORADOL 15 MG IV (23:48)
[2023-06-10] VITALS (13 sets, daily range): BP systolic 98–160; BP diastolic 59–112
[2023-06-10] MEDS: ATIVAN 1 MG PO ×2 (01:03→10:29)
[2023-06-10] MEDS: NSS 1000 IV (04:09)
[2023-06-10] MEDS: UNASYN IV ×4 (04:09→20:48)
[2023-06-10] MEDS: DILAUDID 0.5 MG IV ×5 (04:09→20:48)
[2023-06-10 05:05] LABS: ALT (SGPT) 23 U/L (0-35); AST (SGOT) 35 U/L (14-36); Albumin 3.6 g/dl (3.5-5.0); Alkaline Phosphatase 50 U/L (38-126); Blood Urea Nitrogen 13 mg/dl (7-17); Calcium 8.5 mg/dl (8.4-10.2); Carbon Dioxide 21 mmol/L (22-30); Chloride 103 mmol/L (98-107); Estimated Creatinine Clearance 77 ml/min; Glucose 84 mg/dl (70-99); Magnesium 2.3 mg/dl (1.6-2.3); Potassium 4.2 mmol/L (3.5-5.1); Sodium 134 mmol/L (135-145); Total Bilirubin 0.6 mg/dl (0.2-1.3); Total Protein 6.3 g/dl (6.3-8.2); eGFR > 60.00
[2023-06-10 05:27] LABS: Hematocrit 32.5 % (37.0-47.0); Hemoglobin 11.3 g/dL (12.0-16.0); Mean Corp Hgb Conc. 34.8 g/dL (33.0-37.0); Mean Corpuscular Hgb 32.8 pg (27.0-31.0); Mean Corpuscular Volume 94.2 fL (81.0-99.0); Mean Platelet Volume 9.9 fL (7.4-10.4); Platelet Count 198 10^3/uL (130-400); Red Blood Cell Count 3.45 10^6/uL (4.20-5.40); Red Cell Dist. Width 11.8 % (11.5-14.5); White Blood Cell Count 8.3 10^3/uL (4.8-10.8)
[2023-06-10] MEDS: VALTREX 1000 MG PO (08:18)
[2023-06-10] MEDS: FOLVITE 1 MG PO (08:18)
[2023-06-10] MEDS: LUMINAL 64.7999999999999972 MG PO ×3 (08:19→22:06)
[2023-06-10] MEDS: CYMBALTA DELAYED RELEASE 20 MG PO ×2 (08:19→20:48)
[2023-06-10] MEDS: PROTONIX 40 MG PO ×2 (08:19→20:48)
[2023-06-10] MEDS: LAMICTAL 25 MG PO ×2 (08:19→20:48)
[2023-06-10] MEDS: HEPARIN 5000 UNITS SC ×2 (08:19→20:49)
--- NOTE | 2023-06-10 08:53 | W.PN.HOSP.TC ---
Today's Communication/Plan
-
see A/P
Assessment / Plan
Assessment / Plan
28-year-old female past medical history of lumbar spinal fusion, herniated disc, asthma, GERD, exercise-induced asthma, multiple psychiatric issues including OCD/anxiety/bipolar, presented for concern of alcohol withdrawal.�She typically drinks 9
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
abdominal bloating.� She reported seeing visual hallucinations which are typically weird shapes.�She denied any auditory hallucinations.� She was admitted to an outside hospital in March 2023 for alcohol withdrawal.� Denied any history of alcohol
withdrawal seizures.� She denied any drug use.� She is interested in rehab.
Patient also complains of dental pain.�She had extraction of tooth in her left lower jaw performed by an oral surgeon 3 weeks ECHOCARDIOLOGIST.� Oral surgeon is at [facility] oral surgery.� This was complicated by tooth abscess as per x-ray
performed by the oral surgeon and she was treated with a course of antibiotics.�She completed a second course of clindamycin by her primary care physician which she finished a week ago ECHOCARDIOLOGIST.�Swelling has improved a little bit but she continued to
have significant amount of pain.� She has chills but denies fever.� She does have drainage.� She has pain with chewing on that side.� Denies any shortness of breath.
A/P:
# Alcohol withdrawal
# Transaminitis secondary to alcohol use, resolved
Cont Thiamine and folate, IV fluids
Started phenobarbital protocol, cont
Cont Alcohol withdrawal protocol
Zofran PRN
Diet advanced to regular, pt tolerating well
beta-hCG negative
[facility] following
# Possible alcoholic gastritis
Protonix 40 twice daily for possible alcoholic gastritis
lipase WNL at 62
# Recent tooth extraction complicated by tooth abscess
# Improved leucocytosis, suspect some component of reactive leucocytosis
CT facial bone reviewed.
Appreciate maxillofacial surgery input, No intraoral cause of leukocytosis and no intraoral infection, recent extraction site #19 healing well. Recc to follow-up as outpatient for localized alveoplasty
Cont IV Unasyn
Dilaudid for pain
# Acute kidney injury prerenal
SCr today 1.1, was 1.1 on admission, baseline 0.6
observe off IV fluid
# History of herniated disc status post spinal fusion
# Exercise-induced asthma
# GERD
On omeprazole daily
# Anxiety/OCD/bipolar disorder
Continue duloxetine, lamotrigine, lurasidone,
# History of cold sores in mouth
Continue valacyclovir
Full code
DVT prophylaxis�heparin
Dispo:�[facility] following , patient looking for inpatient D&A treatment facility.
Anticipated Discharge: 24 - 48 hours
Subjective/Interval History
-
Date of Service: June 10, 2023
Objective Data
-
Labs:
Laboratory Results
06/10/23 06/10/23
04:29 05:12
WBC Cancelled 8.3
Hgb Cancelled 11.3 L
Hct Cancelled 32.5 L
Plt Count Cancelled 198
Sodium 134 L
Potassium 4.2
Chloride 103
Carbon Dioxide 21 L
BUN 13
Creatinine 1.1 H
Glucose 84
Calcium 8.5
Total Bilirubin 0.6
AST 35
ALT 23
Alkaline Phosphatase 50
Vital Signs:
Vital Signs
Temp Pulse Resp BP Pulse Ox
36.6 C 79 26 119/88 93
06/10/23 07:31 06/10/23 06:00 06/10/23 06:00 06/10/23 06:00 06/10/23 06:00
I&O
03/07/24 03/08/24 03/09/24
06:59 06:59 06:59
Intake Total 2160 / 2160 1959 / 1959
Output Total 300 / 300 500 / 500
Balance 186 / 186 1460 / 1460
Review of Systems
-
All other systems: Reviewed and negative
Neuro: Reports Other (shaky)
Physical Exam
-
General: Well Developed, Well Nourished, No Apparent Distress, Conversant and Obese; Negative Respiratory Distress
HEENT: Normocephalic, Atraumatic, Nose Appears Normal and Ears Appear Normal; Negative Oxygen
Respiratory: Clear to Auscultation and Non Labored Respirations; Negative Accessory Resp Muscle Use
Cardiac: Regular Rhythm and S1/S2
GI: Soft, Nontender, Nondistended and Normal Bowel Sounds
Skin: Warm and Dry
Neuro: Awake, Alert and Oriented
Psych: Calm and Intact Judgement/Insight
Data Reviewed
-
Labs: Labs Reviewed by me
[2023-06-10] MEDS: NSS IV (10:18)
[2023-06-10] MEDS: ULTRAM 25 MG PO (10:28)
--- NOTE | 2023-06-10 11:22 | PN.CDI ---
CDI
- -
CDI:
Physician Documentation Request
Admit Date: 06/07/23 17:58
Dear Doctor Priscilla,
Patient admitted for alcohol withdrawal.
Laboratory Tests
06/07/23 06/08/23 06/09/23 06/10/23
15:50 04:08 04:31 04:29
Sodium 131 L 132 L 132 L 134 L
Based on the above, could you clarify in the progress notes, the appropriate diagnosis, if significant, that supports the above abnormalities and additional evaluation, monitoring and/or treatment rendered:
Hyponatremia
Abnormal lab value insignificant
Other
Use of terms such as suspected, likely, concern for, or probable (associated with a specific diagnosis that is being evaluated, monitored, or treated as if it exists) are acceptable and can be coded in the inpatient setting, when documented at the
time of discharge.
Thank you,
Brianna Wilson RN, BSN
CDI Specialist
Available via [employer] text
Please use your independent medical judgment in providing your response.
[2023-06-10] MEDS: VITAMIN B1 100 MG PO (20:48)
[2023-06-11] VITALS: BP 143/91
[2023-06-11] MEDS: DILAUDID 0.5 MG IV ×2 (01:17→05:40)
[2023-06-11] MEDS: FLUSH (NSS) 1 FLUSH IV (01:18)
[2023-06-11 04:05] VITALS: BP 124/95
[2023-06-11] MEDS: UNASYN IV ×4 (04:09→21:25)
--- NOTE | 2023-06-11 04:21 | PTCARENOTE ---
Pt resting well overnight. AAOx3. Slight tremor felt. VSS. Afebrile. SR on CM. MSAS 1-2 throughout shift. Admits to 7/10 pain to back and tooth. Medicated with pain med as ordered with good relief. Right wrist IV site painful. After multiple
attempts IV site obtained in left wrist. Using ice for right wrist. Using BSC by self. Mother Nando called overnight updated on pt's status. All questions answered to mother's satisfaction. Rest of assessment unchanged from previous. Turns self in
bed. Call jin remains within reach. Will continue to monitor.
[2023-06-11 06:17] LABS: Hematocrit 33.1 % (37.0-47.0); Hemoglobin 11.5 g/dL (12.0-16.0); Mean Corp Hgb Conc. 34.7 g/dL (33.0-37.0); Mean Corpuscular Volume 94.8 fL (81.0-99.0); Mean Platelet Volume 10.3 fL (7.4-10.4); Platelet Count 212 10^3/uL (130-400); Red Blood Cell Count 3.49 10^6/uL (4.20-5.40); Red Cell Dist. Width 11.6 % (11.5-14.5); White Blood Cell Count 9.8 10^3/uL (4.8-10.8)
[2023-06-11 06:45] LABS: ALT (SGPT) 22 U/L (0-35); AST (SGOT) 28 U/L (14-36); Albumin 3.4 g/dl (3.5-5.0); Alkaline Phosphatase 57 U/L (38-126); Blood Urea Nitrogen 14 mg/dl (7-17); Calcium 8.6 mg/dl (8.4-10.2); Carbon Dioxide 25 mmol/L (22-30); Chloride 102 mmol/L (98-107); Estimated Creatinine Clearance 77 ml/min; Glucose 89 mg/dl (70-99); Magnesium 2.1 mg/dl (1.6-2.3); Potassium 3.8 mmol/L (3.5-5.1); Sodium 132 mmol/L (135-145); Total Bilirubin 0.4 mg/dl (0.2-1.3); Total Protein 6.1 g/dl (6.3-8.2); eGFR > 60.00
--- NOTE | 2023-06-11 08:57 | W.PN.HOSP.TC ---
Today's Communication/Plan
-
see A/P
Assessment / Plan
Assessment / Plan
28-year-old female past medical history of lumbar spinal fusion, herniated disc, asthma, GERD, exercise-induced asthma, multiple psychiatric issues including OCD/anxiety/bipolar, presented for concern of alcohol withdrawal.�She typically drinks 9
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
abdominal bloating.� She reported seeing visual hallucinations which are typically weird shapes.�She denied any auditory hallucinations.� She was admitted to an outside hospital in March 2023 for alcohol withdrawal.� Denied any history of alcohol
withdrawal seizures.� She denied any drug use.� She is interested in rehab.
Patient also complains of dental pain.�She had extraction of tooth in her left lower jaw performed by an oral surgeon 3 weeks DETAIL SUPERVISOR.� Oral surgeon is at [facility] oral surgery.� This was complicated by tooth abscess as per x-ray
performed by the oral surgeon and she was treated with a course of antibiotics.�She completed a second course of clindamycin by her primary care physician which she finished a week ago DETAIL SUPERVISOR.�Swelling has improved a little bit but she continued to
have significant amount of pain.� She has chills but denies fever.� She does have drainage.� She has pain with chewing on that side.� Denies any shortness of breath.
A/P:
# Alcohol withdrawal
# Transaminitis secondary to alcohol use, resolved
Cont Thiamine and folate, IV fluids
Started phenobarbital protocol, cont
Cont Alcohol withdrawal protocol
Zofran PRN
Diet advanced to regular, pt tolerating well
beta-hCG negative
[facility] following for outpt rehab
# Possible alcoholic gastritis
Protonix 40 twice daily for possible alcoholic gastritis
lipase WNL at 62
# Recent tooth extraction complicated by tooth abscess
# Improved leucocytosis, suspect some component of reactive leucocytosis
CT facial bone reviewed.
Appreciate maxillofacial surgery input, No intraoral cause of leukocytosis and no intraoral infection, recent extraction site #19 healing well. Recc to follow-up as outpatient for localized alveoplasty
Cont IV Unasyn for now
Dilaudid for pain
# Suspect now CKD stage 2
SCr remain stable at 1.1 today, was 1.1 on admission, baseline 0.6
Off IV fluid
# History of herniated disc status post spinal fusion
# BL lower back pain likely due to hospital mattress
add lidocaine patch BL lower back
# Exercise-induced asthma
# GERD on omeprazole daily
# Anxiety/OCD/bipolar disorder
Continue duloxetine, lamotrigine, lurasidone,
# History of cold sores in mouth
Continue valacyclovir
Full code
DVT prophylaxis�heparin
Dispo:�[facility] following , patient looking for inpatient D&A treatment facility.
DW CM
Anticipated Discharge: 24 - 48 hours
Subjective/Interval History
-
Date of Service: June 11, 2023
Objective Data
-
Labs:
Laboratory Results
06/11/23
05:57
WBC 9.8
Hgb 11.5 L
Hct 33.1 L
Plt Count 212
Sodium 132 L
Potassium 3.8
Chloride 102
Carbon Dioxide 25
BUN 14
Creatinine 1.1 H
Glucose 89
Calcium 8.6
Total Bilirubin 0.4
AST 28
ALT 22
Alkaline Phosphatase 57
Vital Signs:
Vital Signs
Temp Pulse Resp BP Pulse Ox
36.7 C 72 22 124/95 93
06/11/23 03:15 06/11/23 06:00 06/11/23 06:00 06/11/23 04:05 06/11/23 04:00
I&O
06/10/23 06/11/23 06/12/23
06:59 06:59 07:59
Intake Total 1959 / 1959 1040 / 1040
Output Total 500 / 500 1999
Balance 1460 / 1460 -960 / -960
Review of Systems
-
All other systems: Reviewed and negative
Musculoskeletal: Reports Other (Lower back pain likely due to hospital mattress)
Neuro: Reports Other (visual hallucination has resolved)
Physical Exam
-
General: Well Developed, Well Nourished, No Apparent Distress, Conversant and Obese; Negative Respiratory Distress
HEENT: Normocephalic, Atraumatic, Nose Appears Normal and Ears Appear Normal; Negative Oxygen
Respiratory: Clear to Auscultation and Non Labored Respirations; Negative Accessory Resp Muscle Use
Cardiac: Regular Rhythm and S1/S2
GI: Soft, Nontender, Nondistended and Normal Bowel Sounds
Skin: Warm and Dry
Neuro: Awake, Alert and Oriented
Psych: Calm and Intact Judgement/Insight
Data Reviewed
-
Labs: Labs Reviewed by me
[2023-06-11 09:18] VITALS: BP 134/88
[2023-06-11] MEDS: ULTRAM 25 MG PO (09:36)
[2023-06-11] MEDS: HEPARIN 5000 UNITS SC ×2 (09:37→20:27)
[2023-06-11] MEDS: LUMINAL 64.7999999999999972 MG PO ×3 (09:38→21:25)
[2023-06-11] MEDS: VALTREX 1000 MG PO (09:39)
[2023-06-11] MEDS: LAMICTAL 25 MG PO ×2 (09:39→20:27)
[2023-06-11] MEDS: VITAMIN B1 100 MG PO ×2 (09:39→20:28)
[2023-06-11] MEDS: CYMBALTA DELAYED RELEASE 20 MG PO ×2 (09:39→20:28)
[2023-06-11] MEDS: FOLVITE 1 MG PO (09:39)
[2023-06-11] MEDS: PROTONIX 40 MG PO ×2 (09:39→20:28)
[2023-06-11] MEDS: LIDOCAINE 4% PATCH 2 PATCH TOPICAL (11:21)
--- NOTE | 2023-06-11 11:42 | CM ---
Addendum entered by Raeann Delgadillo RN 06/11/23 11:52:
CM updated by bedside RN that patient will be picker feeder TOMORROW am for transfer to [facility].
Original Note:
CM confirmed that patient is being discharged to [facility]. Plan to have facility bulk truck driver pick her up from hospital.
PLAN: [facility].
[2023-06-11] MEDS: DILAUDID 0.25 MG IV ×3 (12:17→20:28)
--- NOTE | 2023-06-11 13:45 | PTCARENOTE ---
Pt reported to this RN that a shard of broken tooth came out of her mouth, she stated that it still feels like there is some more tooth fragments there. Dr. Wells updated.
[2023-06-11 20:33] VITALS: BP 154/106
--- NOTE | 2023-06-11 20:55 | PTCARENOTE ---
Received pt from daysgalileo RN. Pt is AAOx3, flat, anxious, tearful - emotional support provided, MSAS per protocol. NSR on the monitor. On RA O2 sat 96%, lungs clear. No c/o nausea or vomiting. BRP. Pt c/o 8/10 mouth pain, PRN pain med given (see
MAR). Pt asked for something to sleep, JOHN Cerda notified, Melatonin HS added. Pt is laying in bed with call jin in reach.
[2023-06-11] MEDS: MELATONIN 5 MG PO (21:24)
[2023-06-11 23:09] VITALS: BP 129/74
[2023-06-11 23:10] VITALS: BP 121/74
[2023-06-12] MEDS: DILAUDID 0.25 MG IV (04:29)
[2023-06-12] MEDS: UNASYN IV ×4 (04:30→22:05)
[2023-06-12 04:36] VITALS: BP 121/90
[2023-06-12 05:00] LABS: Hematocrit 32.9 % (37.0-47.0); Hemoglobin 11.4 g/dL (12.0-16.0); Mean Corp Hgb Conc. 34.7 g/dL (33.0-37.0); Mean Corpuscular Hgb 32.9 pg (27.0-31.0); Mean Corpuscular Volume 94.8 fL (81.0-99.0); Mean Platelet Volume 10.5 fL (7.4-10.4); Platelet Count 206 10^3/uL (130-400); Red Blood Cell Count 3.47 10^6/uL (4.20-5.40); Red Cell Dist. Width 11.5 % (11.5-14.5); White Blood Cell Count 9.6 10^3/uL (4.8-10.8)
[2023-06-12 05:23] LABS: ALT (SGPT) 21 U/L (0-35); AST (SGOT) 24 U/L (14-36); Albumin 3.5 g/dl (3.5-5.0); Alkaline Phosphatase 57 U/L (38-126); Blood Urea Nitrogen 18 mg/dl (7-17); Calcium 9.1 mg/dl (8.4-10.2); Carbon Dioxide 23 mmol/L (22-30); Chloride 100 mmol/L (98-107); Estimated Creatinine Clearance 85 ml/min; Glucose 97 mg/dl (70-99); Potassium 4.1 mmol/L (3.5-5.1); Sodium 132 mmol/L (135-145); Total Bilirubin 0.4 mg/dl (0.2-1.3); Total Protein 6.3 g/dl (6.3-8.2); eGFR > 60.00
--- NOTE | 2023-06-12 08:26 | PTCARENOTE ---
Pt agreeable for discharge, phone call rec'd from [facility] for update, notified this RN that if patient is requiring narcotics for pain management, she will not be accepted. Pt updated and in agreement to take Tylenol only for pain
management. See MAR for times.
[2023-06-12] MEDS: PROTONIX 40 MG PO ×2 (08:38→20:04)
[2023-06-12] MEDS: TYLENOL 650 MG PO ×3 (08:38→22:05)
[2023-06-12] MEDS: LIDOCAINE 4% PATCH 2 PATCH TOPICAL (08:38)
[2023-06-12] MEDS: LAMICTAL 25 MG PO ×2 (08:38→20:05)
[2023-06-12] MEDS: LUMINAL 32.3999999999999986 MG PO (08:38)
[2023-06-12] MEDS: CYMBALTA DELAYED RELEASE 20 MG PO ×2 (08:38→20:04)
[2023-06-12] MEDS: FOLVITE 1 MG PO (08:38)
[2023-06-12] MEDS: VALTREX 1000 MG PO (08:38)
[2023-06-12] MEDS: VITAMIN B1 100 MG PO ×2 (08:38→20:05)
--- NOTE | 2023-06-12 08:40 | W.PN.HOSP.TC ---
Addendum entered and electronically signed by Mellissa Wells MD 06/12/23 17:02:
# Hyponatremia
Original Note:
Today's Communication/Plan
-
for DC today
Assessment / Plan
Assessment / Plan
28-year-old female past medical history of lumbar spinal fusion, herniated disc, asthma, GERD, exercise-induced asthma, multiple psychiatric issues including OCD/anxiety/bipolar, presented for concern of alcohol withdrawal.�She typically drinks 9
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
abdominal bloating.� She reported seeing visual hallucinations which are typically weird shapes.�She denied any auditory hallucinations.� She was admitted to an outside hospital in March 2023 for alcohol withdrawal.� Denied any history of alcohol
withdrawal seizures.� She denied any drug use.� She is interested in rehab.
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
have significant amount of pain.� She has chills but denies fever.� She does have drainage.� She has pain with chewing on that side.� Denies any shortness of breath.
A/P:
# Alcohol withdrawal, resolved
# Transaminitis secondary to alcohol use, resolved
Cont Thiamine and folate
Visual hallucination has resolved and pt is out of withdrawal
Pt was started with phenobarbital protocol, no need to continue
Cont Alcohol withdrawal protocol with PRN Ativan
Zofran PRN
Diet advanced to regular, pt tolerated well
beta-hCG negative
[facility] following for outpt rehab
# Possible alcoholic gastritis, resolved
Protonix 40 twice daily during hospital stay for possible alcoholic gastritis
lipase WNL at 62
# Recent tooth extraction complicated by tooth abscess
# Improved leucocytosis, suspect some component of reactive leucocytosis
CT facial bone reviewed.
Appreciate maxillofacial surgery input, No intraoral cause of leukocytosis and no intraoral infection, recent extraction site #19 healing well. Recc to follow-up as outpatient for localized alveoplasty
Cont IV Unasyn for now with plan to transition to Augmentin upon discharge.
Dilaudid for pain
# Suspect now CKD stage 2
SCr remain stable at 1.0 today, was 1.1 on admission, baseline 0.6
Off IV fluid
# History of herniated disc status post spinal fusion
# BL lower back pain likely due to hospital mattress
add lidocaine patch BL lower back
# Exercise-induced asthma
# GERD on omeprazole daily
# Anxiety/OCD/bipolar disorder
Continue duloxetine, lamotrigine, lurasidone,
# History of cold sores in mouth
Continue valacyclovir
Full code
DVT prophylaxis�heparin
Dispo:�[facility] following , for inpatient D&A treatment facility.
DW RN
Anticipated Discharge: Today
Subjective/Interval History
-
Date of Service: June 12, 2023
Objective Data
-
Labs:
Laboratory Results
06/12/23
04:37
WBC 9.6
Hgb 11.4 L
Hct 32.9 L
Plt Count 206
Sodium 132 L
Potassium 4.1
Chloride 100
Carbon Dioxide 23
BUN 18 H
Creatinine 1.0
Glucose 97
Calcium 9.1
Total Bilirubin 0.4
AST 24
ALT 21
Alkaline Phosphatase 57
Vital Signs:
Vital Signs
Temp Pulse Resp BP Pulse Ox
36.6 C 68 18 121/90 95
06/12/23 07:30 06/12/23 06:00 06/11/23 23:10 06/12/23 04:36 06/11/23 23:10
I&O
06/11/23 06/12/23 06/13/23
05:59 06:59 06:59
Intake Total
Output Total
Balance
Review of Systems
-
All other systems: Reviewed and negative
Physical Exam
-
General: Well Developed, Well Nourished, No Apparent Distress, Conversant and Obese; Negative Respiratory Distress
HEENT: Normocephalic, Atraumatic, Nose Appears Normal and Ears Appear Normal; Negative Oxygen
Respiratory: Clear to Auscultation and Non Labored Respirations; Negative Accessory Resp Muscle Use
Cardiac: Regular Rhythm and S1/S2
GI: Soft, Nontender, Nondistended and Normal Bowel Sounds
Skin: Warm and Dry
Neuro: Awake, Alert and Oriented
Psych: Calm and Intact Judgement/Insight
Data Reviewed
-
Labs: Labs Reviewed by me
[2023-06-12] MEDS: HEPARIN SC ×2 (08:44→20:05)
--- NOTE | 2023-06-12 11:47 | PTCARENOTE ---
[facility] called to inform this RN that since patient has been receiving Dilaudid up until 04:30 this am, their medical doctor will not accept patient until she has passed 48 hours without requiring opiod pain medications. Dr. Wells and patient
both updated. Orders rec'd to discontinue Dilaudid, Tramadol and Phenobarbital. Pt agrees to use Tylenol for pain management. Will monitor closely, possible discharge on Tuesday if pt remains stable. Tele orders reinstated. Mother called to
recieve update, Orion from [facility] called to receive update as well. [facility] rep Beryl stated that they will probably call the patient tomorrow to check in. Pt remains flat, withdrawn and tearful, states that she is depressed about her
situation and worried about going to rehab for a 'whole month.' Feels overwhelmed with her situation. Emotional support provided. Call jin in reach, encouraged pt to come out of room and walk. Pt declines at this time.
[2023-06-12 16:45] VITALS: BP 137/89
--- NOTE | 2023-06-12 16:49 | CM ---
CM reviewed medical records. Patent's discharge delayed as patient needs to be off opioids for 48 hours prior to arrival to [facility]. [facility] actively involved and following.
--- NOTE | 2023-06-12 17:01 | W.PN.UPDATE ---
Update Note
Progress Note Update
RN informed that patient is having loose stool.
Can check stool studies such as C. difficile, norovirus, stool culture. Can start loperamide if C. difficile etc. are negative
--- NOTE | 2023-06-12 17:05 | PTCARENOTE ---
Pt with 2 loose stools today, Dr. Wells updated. Orders for stool studies rec'd - if Cdiff neg, will order loperamide. Pt updated and verbalized understanding.
--- NOTE | 2023-06-12 17:38 | PTCARENOTE ---
Pt brighter and more upbeat this afternoon. MSAS completed per protocol. Pt will notify RN if she has another loose stool and will send for studies.
[2023-06-12 20:08] VITALS: BP 165/102
[2023-06-12] MEDS: MELATONIN 5 MG PO (22:05)
[2023-06-12 22:43] VITALS: BP 120/82
[2023-06-13] MEDS: UNASYN IV ×4 (04:17→23:00)
[2023-06-13 04:24] VITALS: BP 140/98
[2023-06-13 04:42] LABS: Hematocrit 33.2 % (37.0-47.0); Hemoglobin 11.4 g/dL (12.0-16.0); Mean Corp Hgb Conc. 34.3 g/dL (33.0-37.0); Mean Corpuscular Hgb 32.1 pg (27.0-31.0); Mean Corpuscular Volume 93.5 fL (81.0-99.0); Mean Platelet Volume 10.3 fL (7.4-10.4); Platelet Count 221 10^3/uL (130-400); Red Blood Cell Count 3.55 10^6/uL (4.20-5.40); Red Cell Dist. Width 11.7 % (11.5-14.5); White Blood Cell Count 8.2 10^3/uL (4.8-10.8)
[2023-06-13 05:05] LABS: ALT (SGPT) 26 U/L (0-35); AST (SGOT) 29 U/L (14-36); Albumin 3.7 g/dl (3.5-5.0); Alkaline Phosphatase 56 U/L (38-126); Blood Urea Nitrogen 15 mg/dl (7-17); Carbon Dioxide 24 mmol/L (22-30); Chloride 102 mmol/L (98-107); Estimated Creatinine Clearance 77 ml/min; Glucose 92 mg/dl (70-99); Magnesium 2.1 mg/dl (1.6-2.3); Potassium 3.8 mmol/L (3.5-5.1); Sodium 132 mmol/L (135-145); Total Bilirubin 0.3 mg/dl (0.2-1.3); Total Protein 6.7 g/dl (6.3-8.2); eGFR > 60.00
--- NOTE | 2023-06-13 06:29 | PTCARENOTE ---
Pt rang expressing concern that she wants to go to crisis, and that she does not want to go to inpatient alcohol rehab. She states, 'it is more mental health, anxiety and depression'. Emotional support provided, pt reassured she would not hurt
herself and is not suicidal. Pt wants mental health housing instead of inpatient rehab. Pt states, 'she was going to inpatient rehab since she does not have a place to live'. credit reporting clerk on pt chart all notified via TT (Candelaria Pearce, and
Elie). Crisis was notified, they stated director of casework will be able to assist pt.
[2023-06-13] MEDS: FOLVITE 1 MG PO (09:02)
[2023-06-13] MEDS: PROTONIX 40 MG PO ×2 (09:02→20:15)
[2023-06-13] MEDS: LAMICTAL 25 MG PO ×2 (09:02→20:15)
[2023-06-13] MEDS: VALTREX 1000 MG PO (09:02)
[2023-06-13] MEDS: VITAMIN B1 100 MG PO ×2 (09:02→20:16)
[2023-06-13] MEDS: HEPARIN SC ×2 (09:03→20:16)
[2023-06-13] MEDS: TYLENOL 650 MG PO ×2 (09:03→13:03)
[2023-06-13] MEDS: LIDOCAINE 4% PATCH 2 PATCH TOPICAL (09:03)
[2023-06-13] MEDS: CYMBALTA DELAYED RELEASE 20 MG PO ×2 (09:03→20:15)
--- NOTE | 2023-06-13 09:18 | PTCARENOTE ---
Patient AAOx3, very flat affect, withdrawn. Asking for case management to discuss plan once discharged stating she would like to go to crisis and get mental health counseling over alcohol rehab. Will discuss with CM. ROSALES. Stool sample outstanding as
patient hasn't had any more diarrhea since yesterday, on enhanced precautions for now. Continuing to closely monitor.
--- NOTE | 2023-06-13 11:03 | W.PN.HOSP.TC ---
Today's Communication/Plan
-
hopeful d/c somewhere today
Assessment / Plan
Assessment / Plan
28-year-old female past medical history of lumbar spinal fusion, herniated disc, asthma, GERD, exercise-induced asthma, multiple psychiatric issues including OCD/anxiety/bipolar, presented for concern of alcohol withdrawal.�She typically drinks 9
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
abdominal bloating.� She reported seeing visual hallucinations which are typically weird shapes.�She denied any auditory hallucinations.� She was admitted to an outside hospital in March 2023 for alcohol withdrawal.� Denied any history of alcohol
withdrawal seizures.� She denied any drug use.� She is interested in rehab.
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
have significant amount of pain.� She has chills but denies fever.� She does have drainage.� She has pain with chewing on that side.� Denies any shortness of breath.
Alcohol withdrawal with transaminitis, resolved--Cont Thiamine and folate--Visual hallucination has resolved and pt is out of withdrawal --off phenobarb--cont MSAS--pt refusing to go to inpt ETOH rehab
Possible alcoholic gastritis, resolved --Protonix 40 twice daily during hospital stay for possible alcoholic gastritis--lipase WNL at 62
Recent tooth extraction complicated by tooth abscess/Improved leucocytosis, suspect some component of reactive leucocytosis--apprec OMFS--Augmentin at d/c
Suspect now CKD stage 2 --SCr remain stable 1.1 on admission, baseline 0.6
History of herniated disc status post spinal fusion/BL lower back pain likely due to hospital mattress--add lidocaine patch BL lower back
Exercise-induced asthma
GERD on omeprazole daily
Anxiety/OCD/bipolar disorder--Continue duloxetine, lamotrigine, lurasidone,
History of cold sores in mouth--Continue valacyclovir
Full code
DVT prophylaxis�heparin
Dispo:�[facility] following , for inpatient D&A treatment facility--pt refusing
Anticipated Discharge: Today
Subjective/Interval History
-
Date of Service: June 13, 2023
pt crying hysterically--wants to go home but is homeless
Objective Data
-
Labs:
Laboratory Results
06/13/23
04:25
WBC 8.2
Hgb 11.4 L
Hct 33.2 L
Plt Count 221
Sodium 132 L
Potassium 3.8
Chloride 102
Carbon Dioxide 24
BUN 15
Creatinine 1.1 H
Glucose 92
Calcium 9.0
Total Bilirubin 0.3
AST 29
ALT 26
Alkaline Phosphatase 56
Vital Signs:
max temp for 24 hours
06/13/23
07:30
Temp 98.4 F
Vital Signs
Temp Pulse Resp BP Pulse Ox
98.4 F 67 28 140/98 97
06/13/23 07:30 06/13/23 08:00 06/12/23 16:45 06/13/23 04:24 06/13/23 04:20
I&O
06/12/23 06/13/23 06/14/23
06:59 06:59 06:59
Intake Total 1250 / 1250
Balance 1250 / 1250
Review of Systems
-
All other systems: Reviewed and negative
Physical Exam
-
General: Other (refused to let me examine her)
Psych: Other (crying hysterically)
--- NOTE | 2023-06-13 11:06 | CM ---
Patient seen at bedside with physician. Patient stating that she needs housing and denying that she has an alcohol problem. Patient has talked to [facility] today and mother here. Mother supportive but unable to provide housing for patient as she is
renting a room with another person. Patient verbalizing that she just needs treatment for depression and housing. CM clarified with Crisis that they do not have access to housing for depression treatment and updated patient and mother. Patient
agreed to talk to Psychiatry and physician placed consult. Patient continues to ask mother for a place to stay. Patient was living with partner and it had ended badly per patient and mother. Patient options Drug and alcohol treatment program
potentially today if bed available and patient willing to go vs residential. Awaiting psychiatry assessment. CM will continue to follow for discharge planning needs.
Plan; [place] [facility] vs residential pending psych assessment
[2023-06-13 12:09] VITALS: BP 142/112
[2023-06-13] MEDS: MOTRIN 400 MG PO (13:03)
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
[2023-06-13 17:08] VITALS: BP 142/108
[2023-06-13 17:09] VITALS: BP 142/108
--- NOTE | 2023-06-13 20:35 | PTCARENOTE ---
Received pt at change of shift. Pt states she is not agreeable to rehab for tomorrow and wants to go live with someone else. Pt states she does not need any help right now. Pt took most of her evening medications - refused Heparin (see MAR). Pt
sitting up in bed with call jin in reach.
[2023-06-13] MEDS: MELATONIN PO (23:00)
[2023-06-13 23:22] VITALS: BP 126/77
[2023-06-14] MEDS: UNASYN IV ×2 (04:51→09:27)
[2023-06-14 07:35] VITALS: BP 152/114
--- NOTE | 2023-06-14 07:43 | PTCARENOTE ---
Pt non compliant with VS. Tech wanted to re check and ot refused. Pt also states she is not going to rehab
[2023-06-14] MEDS: PROTONIX 40 MG PO (08:23)
[2023-06-14] MEDS: CYMBALTA DELAYED RELEASE 20 MG PO (08:24)
[2023-06-14] MEDS: FOLVITE 1 MG PO (08:24)
[2023-06-14] MEDS: LAMICTAL 25 MG PO (08:24)
[2023-06-14] MEDS: VALTREX 1000 MG PO (08:24)
[2023-06-14] MEDS: VITAMIN B1 100 MG PO (08:24)
[2023-06-14] MEDS: LIDOCAINE 4% PATCH TOPICAL (08:25)
[2023-06-14] MEDS: HEPARIN SC ×2 (08:25→08:29)
[2023-06-14] MEDS: TYLENOL 650 MG PO (08:27)
--- NOTE | 2023-06-14 09:27 | W.PN.HOSP.TC ---
Today's Communication/Plan
-
d/c
Assessment / Plan
Assessment / Plan
28-year-old female past medical history of lumbar spinal fusion, herniated disc, asthma, GERD, exercise-induced asthma, multiple psychiatric issues including OCD/anxiety/bipolar, presented for concern of alcohol withdrawal.�She typically drinks 9
shots of vodka per day which she has been doing for months.�Her last drink was 36 hours [employer].� She has been increasingly shaky and fidgety over the past few days.� She also has headache, nausea and vomiting and blurry vision.�She did have some
abdominal bloating.� She reported seeing visual hallucinations which are typically weird shapes.�She denied any auditory hallucinations.� She was admitted to an outside hospital in March 2023 for alcohol withdrawal.� Denied any history of alcohol
withdrawal seizures.� She denied any drug use.� She is interested in rehab.
Patient also complains of dental pain.�She had extraction of tooth in her left lower jaw performed by an oral surgeon 3 weeks [employer].� Oral surgeon is at [facility] oral surgery.� This was complicated by tooth abscess as per x-ray
performed by the oral surgeon and she was treated with a course of antibiotics.�She completed a second course of clindamycin by her primary care physician which she finished a week ago [employer].�Swelling has improved a little bit but she continued to
have significant amount of pain.� She has chills but denies fever.� She does have drainage.� She has pain with chewing on that side.� Denies any shortness of breath.
Alcohol withdrawal with transaminitis, resolved--Cont Thiamine and folate--Visual hallucination has resolved and pt is out of withdrawal --off phenobarb--cont MSAS--pt refusing to go to inpt ETOH rehab
Possible alcoholic gastritis, resolved --Protonix 40 twice daily during hospital stay for possible alcoholic gastritis--lipase WNL at 62
Recent tooth extraction complicated by tooth abscess/Improved leucocytosis, suspect some component of reactive leucocytosis--apprec OMFS--Augmentin at d/c
Suspect now CKD stage 2 --SCr remain stable 1.1, baseline 0.6
History of herniated disc status post spinal fusion/BL lower back pain likely due to hospital mattress--add lidocaine patch BL lower back
Exercise-induced asthma
GERD on omeprazole daily
Anxiety/OCD/bipolar disorder--Continue duloxetine, lamotrigine, lurasidone,
History of cold sores in mouth--Continue valacyclovir
Full code
DVT prophylaxis�heparin
Dispo:�[facility] following , for inpatient D&A treatment facility--pt refusing
Anticipated Discharge: Today
Subjective/Interval History
-
Date of Service: June 14, 2023
pt now refusing any inpt treatment
Objective Data
-
Vital Signs:
max temp for 24 hours
06/13/23
07:30
Temp 98.4 F
Vital Signs
Temp Pulse Resp BP Pulse Ox
98.4 F 81 20 152/114 92
06/14/23 07:35 06/14/23 07:35 06/14/23 07:35 06/14/23 07:35 06/13/23 23:22
I&O
06/13/23 06/14/23 06/15/23
06:59 06:59 06:59
Intake Total 1250 / 1250
Balance 1250 / 1250
Review of Systems
-
All other systems: Reviewed and negative
Neuro: Reports Headache
Physical Exam
-
General: Well Developed, Well Nourished and No Apparent Distress
HEENT: Normocephalic and Atraumatic
Respiratory: Clear to Auscultation; Negative Wheezes or Rhonchi
Cardiac: Regular Rhythm and S1/S2; Negative Murmur
GI: Soft, Nontender, Nondistended and Normal Bowel Sounds
Musculoskeletal: No Clubbing, No Cyanosis and No Edema
Neuro: Awake
--- NOTE | 2023-06-14 09:30 | CM ---
Patient seen at bedside with physician. Patient reports she will go to her uncle's home with her cousin and refuses to go to rehab. [facility] aware and cousin to pick her up. Patient stated that she will return to [facility] as an outpatient/partial
hospitalization. CM will continue to follow for discharge planning needs.
Plan; home with uncle; outpatient treatment options as per patient
[2023-06-14] MEDS: MOTRIN 400 MG PO (11:26)
--- NOTE | 2023-06-14 11:31 | PTCARENOTE ---
Pt still has a VIEYRA given Americo as ordered. Pt states she will be leaving about 4 pm
--- NOTE | 2023-06-14 11:56 | W.PN.UPDATE ---
Update Note
Progress Note Update
Pt seen, reviewed with cage mgr and hospitalist. Pt now stating she can stay with her uncle, her cousin is coming today to pick her up. Pt declines alcohol rehab. She states she will follow up at [facility], states she had treatment there
before. Pt c/o headache, but no other active complaints, no apparent distress today. Pt alert, calm, cooperative, with appropriate affect.
Imp: Alcohol Use d/o
�� � � � Hx of� Unspecified mood d/o, with hx of recurrent depression. Suspect borderline personality traits
Rec:� continue current psych medications.�Pt appears psychiatrically stable for outpatient treatment; she declines recommended alcohol rehab.
--- NOTE | 2023-06-14 13:41 | PTCARENOTE ---
Pt expressed concern in re to chronic kidney disease stage 2 on DC paper work. Explained to pt , she asked if it was from holding in her pee , I told her its more about the kidneys filtering and more than likely from her excessive drinking. Pt told
to follow up with her PCP.
--- NOTE | 2023-06-14 13:51 | PTCARENOTE ---
Pt had a large bloody stool DR Julio SIMMONS
--- NOTE | 2023-06-14 19:07 | W.DCSUMMARY ---
Discharge Summary
Discharge Data
Date of Admission: 06/07/23
Date of Discharge: 06/14/23
-
Pending Results: No
Hospital Course
Primary care physician : Gaye Campos
Principal Discharge diagnosis : Alcohol withdrawal with transaminitis, possible alcoholic gastritis, recent tooth extraction complicated by tooth abscess
Chronic Discharge diagnosis : Chronic kidney disease stage II, history of herniated disks status post spinal fusion with bilateral lower back pain in the past, exercise-induced asthma, gastroesophageal reflux disease, anxiety/obsessive-compulsive
disorder/bipolar disorder, history of cold sores in the mouth
Hospital Course : Patient is a 28-year-old female who presented with concerns for alcohol withdrawal. She typically drinks 9 shots of vodka per day which she apparently has been doing for months. She stated her last drink was 36 hours prior to
admission. She had been increasingly shaky and fidgety. She also complained of headache, nausea, vomiting, and blurry vision. She reported seeing visual hallucinations which are typically weird shapes as she describes them. She denied auditory
hallucinations. She was admitted to a different hospital in March 2023 for alcohol withdrawal as well. She denied any history of seizures. She denies any history of drug use. The patient was interested in rehab. Also of note, the patient
complained of dental pain and had an extraction of her tooth in the left lower jaw performed by an oral surgeon 3 weeks prior to admission. The physician was at [facility] oral surgery. This was complicated by a tooth abscess and
she was placed on a course of antibiotics. She completed her second course of clindamycin which she finished 1 week prior to admission. Patient was admitted.
Problem #1: Alcohol withdrawal with transaminitis. Patient was admitted and had alcohol withdrawal. She was started on phenobarbital and was weaned off. She was also started on the [facility] alcohol withdrawal protocol. She was given thiamine and
folate. She was also seen in consultation by psychiatry and [facility]. Plans were for the patient to go to inpatient alcohol rehab with detox. She had been accepted at [facility] although there was no bed at the time of
discharge. Patient then decided that she did not wish to go to rehab but did not wish to go to a fci either. She had been having issues with her significant other at home. Apparently she was living with her partner and this ended badly. She
states that she has no place to go. She has decided to go to her uncle's who lives near [facility] which she has been to in the past.
Problem #2: Possible alcoholic gastritis. Patient was started on Protonix twice daily during her hospital stay. Lipase was checked and was within normal limits at 62.
Problem #3: Recent tooth extraction complicated by tooth abscess. Oral maxillofacial surgery was consulted. There is no need for any further surgical process. She was prescribed Augmentin to finish at discharge.
Problem #4: All other medical issues. These include Chronic kidney disease stage II, history of herniated disks status post spinal fusion with bilateral lower back pain in the past, exercise-induced asthma, gastroesophageal reflux disease,
anxiety/obsessive-compulsive disorder/bipolar disorder, history of cold sores in the mouth. These issues were stable during her hospitalization. Medications were continued as able.
As mentioned, patient has decided against going to inpatient drug and alcohol rehab for help. She will be going to her uncle's house who lives near [facility]. Patient is stable for discharge home at this time. If there are any questions
regarding this dictation or her hospital stay, please not hesitate to call. Our office number is [phone].
Important imaging findings :
FACIAL BONES CT SCAN IMPRESSION:
The lucency and defect in the left mandible in the area of recent tooth extraction is fairly well-defined as outlined above. There is a tiny density centrally in the defect, suggesting the possibility of a residual loose body which may cause
persistent irritation or inflammation.
Additionally there is the possibility of a small fluid collection lateral to the defect which may represent a small abscess measuring 1 x 0.5 cm.
Discharge Plan
-
Patient Disposition: Other
Discharge Diagnosis/Procedures: Alcohol withdrawal with resolved transaminitis and likely alcoholic gastritis; Recent tooth extraction (per maxillofacial surgery, No intraoral cause of leukocytosis and no intraoral infection, recent extraction site
#19 healing well. Recc to follow-up as outpatient for localized alveoplasty); Suspect now chronic kidney disease stage 2, exercise-induced asthma, gastroesophageal reflux disease, anxiety/obsessive-compulsive disorder/bipolar disorder, history of
cold sores in mouth
Condition: Good
Diet: As tolerated
Additional Diets: ABSOLUTELY NO ALCOHOL
Activity: As tolerated
Driving Restrictions: Not until seen by your Dr
Bathing Restrictions: None
Referrals:
Gaye Campos PA-C [Family Provider] - in less than 1 week
Additional Discharge Medication Instructions: Continue Augmentin for 5 more days
Prescriptions:
New
amoxicillin-pot clavulanate 875-125 mg tablet
1 tab PO BID 5 Days Qty: 10 0RF
Continued
valacyclovir 1 gram tablet
1,000 mg PO DAILY
norethindrone-e.estradiol-iron [Aurovela Fe 1-20 (28)] 1 mg-20 mcg (21)/75 mg (7) tablet
1 tab PO DAILY
lamotrigine 25 mg tablet
25 mg PO BID
duloxetine 20 mg capsule,delayed release(DR/EC)
20 mg PO BID
lurasidone 40 mg tablet
40 mg PO QPM
pimozide 1 mg Tablet
1 mg PO DAILY
Discharge Orders:
Discharge Patient (As Directed); Ordered 06/14/23
Ordered By: Grace Ashby
Discharge Date and Time
Discharge Date/Time: 06/14/23 13:51
== END 2023-06-14 13:51 | disposition home or self-care (01) | DRG 897 ==
LOC: IMU 17:58
PROVIDERS: Internal Medicine; Physician Assistant Medical; ADMITTING PHYSICIAN Hospitalist; ATTENDING PHYSICIAN Internal Medicine; CONSULT PHYSICIAN Dentist Oral and Maxillofacial Surgery; CONSULT PHYSICIAN Psychiatry & Neurology Psychiatry; EMERGENCY PHYSICIAN Emergency Medicine; FAMILY PHYSICIAN Physician Assistant
DX: F10.239 Alcohol dependence with withdrawal, unspecified (principal); E87.1 Hypo-osmolality and hyponatremia; Z59.00 Homelessness unspecified; N17.9 Acute kidney failure, unspecified; R44.1 Visual hallucinations; K04.7 Periapical abscess without sinus; J45.990 Exercise induced bronchospasm; F41.9 Anxiety disorder, unspecified; K29.20 Alcoholic gastritis without bleeding; G89.29 Other chronic pain; K21.9 Gastro-esophageal reflux disease without esophagitis; M54.9 Dorsalgia, unspecified; F17.200 Nicotine dependence, unspecified, uncomplicated; F42.9 Obsessive-compulsive disorder, unspecified; N18.2 Chronic kidney disease, stage 2 (mild); R74.01 Elevation of levels of liver transaminase levels; F31.9 Bipolar disorder, unspecified; H53.8 Other visual disturbances; Z98.1 Arthrodesis status; Z88.0 Allergy status to penicillin; Z88.1 Allergy status to other antibiotic agents; Z91.010 Allergy to peanuts; Z86.19 Personal history of other infectious and parasitic diseases
CPT/HCPCS: 70487; 80053; 80306; 80307; 81003; 81015; 82077; 83690; 83735; 84100; 84703; 85025; 85027; 85610; 87070; 96361; 96365; 96375; 96376; 99284; Q9967

== ENCOUNTER 2023-07-08 15:55 | Emergency (ER) | payer OTHER, SELFPAY ==
[2023-07-08 15:59] VITALS: BP 165/114; BMI 26.5
--- NOTE | 2023-07-08 16:37 | ED.GENMED ---
History of Present Illness
General
Chief Complaint: Alcohol Problem
Source: patient
Exam Limitations: none
Time Seen by Provider: 07/08/23 16:25
Travel History
Have you had any contact with someone who has COVID-19?: No
Do you have any symptoms of coronavirus? Fever > 100 degrees, chills, cough, shortness of breath, sore throat, loss of taste or smell, muscle aches, or headache?: No
History of Present Illness
History of Present Illness:
28-year-old female presents voluntarily with thoughts of harming self. She admits to alcohol abuse. She has been drinking regularly. She was here 2 weeks ago for alcohol abuse and withdrawal. At that time she was offered long term or placement
however there is no beds available. She went home to live with her uncle. She states her uncle will now be removing her from the house. She has no place to go. She lost her job recently and her significant other. She has been drinking to cope.
She has a history of bipolar disorder. She started checking mouthwash today and attempt to harm herself. She has a history of self-harm cutting behavior but no prior history of suicidal thoughts. She was dropped off by her mother. No other
complaints at this time
Past History
Past History
ED Past Medical History: Asthma (Exercised induced), GERD, Psychiatric (Anxiety,), Other (Chronic back pain, lumbar fusion, UTI) and Other
ED Past Surgical History: Orthopedic (Lumbar discectomy, spinal fusion, wrist surgery) and Tonsilectomy
Social History
Tobacco: Smoker
Alcohol: Occasional
Drug: None
Personal: Single
Living: with family
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
Family History
Family History: Other (Noncontributory); Negative Early CAD or Sudden
Phy Exam
Physical Exam
Physical Exam:
General: Tearful female no acute respiratory distress HEENT: Normocephalic atraumatic
Heart: Slightly tachycardic but regular
Lungs: Clear
psychiatric exam tearful, crying admits to suicidal ideation vague in nature without specific plan denies homicidal thoughts or hallucinations.
Scores
Withdrawal Assessment of Alcohol
Withdrawal Assessment Completed?: No
Course
Orders/Labs/Results
Orders:
Orders
07/08/23 16:04
1:1 Observation - Suicide/ Violent Behavior As Directed
07/08/23 16:36
Crisis Consult Urgent
Reason for Consult: SI
07/08/23 17:29
Alcohol Urgent
Complete Blood Count/With Diff Urgent
Comprehensive Metabolic Panel Urgent
Tylenol [Acetaminophen] Urgent
07/08/23 18:03
Acetaminophen [Tylenol] 650 mg PO NOW STA
Ondansetron Orally Disint [Zofran Odt (Orally Disintegrating)] 4 mg PO NOW STA
07/08/23 18:04
Acetaminophen [Tylenol] 650 mg .ROUTE .STK-MED ONE
Ondansetron Orally Disint [Zofran Odt (Orally Disintegrating)] 4 mg .ROUTE .STK-MED ONE
07/08/23 18:12
Drug Screen, Urine [Urine Drug Abuse Screen] Urgent
Date Specimen was Collected: 07/08/23
Time Specimen was Collected: 18:11
07/08/23 19:06
Lorazepam [Ativan] 1 mg PO NOW STA
Abnormal Lab Results
07/08/23 07/08/23
17:29 18:12
MCH 32.7 H pg
(27.0-31.0)
Absolute Neuts (auto) 7.5 H 10^3/uL
(1.4-6.5)
Absolute Monos (auto) 0.8 H 10^3/uL
(0.1-0.6)
Carbon Dioxide 20 L mmol/L
(22-30)
Calcium 10.6 H mg/dl
(8.4-10.2)
ALT 36 H U/L
(0-35)
Total Protein 8.7 H g/dl
(6.3-8.2)
Albumin 5.3 H g/dl
(3.5-5.0)
Acetaminophen < 10 L ug/ml
(10-30)
Ur Barbiturates Screen Positive H
(Negative)
07/08/23 17:29
07/08/23 17:29
Vital Signs
Initial and Last Documented VS:
Initial Vital Signs
Temp Pulse Resp BP Pulse Ox
98.6 F 124 20 165/114 98
07/08/23 15:59 07/08/23 15:59 07/08/23 15:59 07/08/23 15:59 07/08/23 15:59
Last Documented Vital Signs
Temp Pulse Resp BP Pulse Ox
98.2 F 110 16 125/85 97
07/08/23 23:49 07/08/23 23:49 07/08/23 23:49 07/08/23 23:49 07/08/23 23:49
MDM/Problems Addressed
Differential Diagnosis Includes:
Patient with alcohol abuse but also admits to suicidal thoughts. Check labs consult crisis. Currently patient is here voluntarily. She may benefit from the dual therapy facility.
*Critical Care Note
Total Time (30-74mins, 75-104mins- exclusive of procedures): Not Applicable
Update Note
Update Note:
Patient remains cooperative throughout her stay here. She was given Ativan as she was anxious. Evaluated by crisis and subsequently [facility]. Crisis felt more so this was alcohol related. [facility] felt more comfortable deferring to crisis. Crisis
working on placement for potential dual therapy.
ED Attending Note
-
Portions of this chart may have been created with voice recognition software.� Occasional wrong word or��sound alike� substitutions may have occurred due to the inherent limitations of voice recognition software.
Discharge Plan
Departure
Patient Disposition: Psych Facility
Date of Disposition: 07/08/23
Time of Disposition: 23:56
Discharge Problem:
Alcohol abuse, Suicidal ideation
Instructions: Alcohol Use Disorder (DC)
Prescriptions:
No Action
valacyclovir 1 gram tablet
1,000 mg PO DAILY
norethindrone-e.estradiol-iron [Aurovela Fe 1-20 (28)] 1 mg-20 mcg (21)/75 mg (7) tablet
1 tab PO DAILY
lamotrigine 25 mg tablet
25 mg PO BID
duloxetine 20 mg capsule,delayed release(DR/EC)
20 mg PO BID
lurasidone 40 mg tablet
40 mg PO QPM
pimozide 1 mg Tablet
1 mg PO DAILY
amoxicillin-pot clavulanate 875-125 mg tablet
1 tab PO BID 5 Days Qty: 10 0RF
Referrals:
Raji Tidwell MD [Family Provider] -
Activity Restrictions/Additional Instructions:
Please seek further treatment through the crisis department in detox facility
Interventions
Interventions:
*Risk Screen - Suicide Last Done: 07/08/23 15:59
*General Assessment Last Done: 07/08/23 16:56
*Neglect/Abuse Screening Last Done: 07/08/23 15:59
*ED COVID-19 Vaccine History Last Done: 07/08/23 15:59
ED- Neurological Assessment Last Done: 07/08/23 16:57
ED-Psychological Assessment Last Done: 07/08/23 16:57
Discharge Date and Time
Print Language: TAMAZIGHT
--- NOTE | 2023-07-08 17:34 | EDRN ---
Phlebotomy was able to get the blood at this time. Pt now drinking water and is aware of need for urine spec.
[2023-07-08 17:37] LABS: % Basophils 1.2 % (0-2); % Eosinophils 1.2 % (0-6); % Immature Granulocytes 0.4 % (0-0.5); % Monocytes 7.2 % (1.7-9.3); Absolute Basophils 0.1 10^3/uL (0-0.2); Absolute Eosinophils 0.1 10^3/uL (0-0.7); Absolute Lymphocytes 2.3 10^3/uL (1.2-3.4); Absolute Monocytes 0.8 10^3/uL (0.1-0.6); Absolute Neutrophils 7.5 10^3/uL (1.4-6.5); Hematocrit 39.6 % (37.0-47.0); Hemoglobin 13.9 g/dL (12.0-16.0); Mean Corp Hgb Conc. 35.1 g/dL (33.0-37.0); Mean Corpuscular Hgb 32.7 pg (27.0-31.0); Mean Corpuscular Volume 93.2 fL (81.0-99.0); Mean Platelet Volume 9.7 fL (7.4-10.4); Nucleated Red Blood Cells % 0 %; Platelet Count 294 10^3/uL (130-400); Red Blood Cell Count 4.25 10^6/uL (4.20-5.40); Red Cell Dist. Width 12.6 % (11.5-14.5); White Blood Cell Count 10.8 10^3/uL (4.8-10.8)
[2023-07-08 17:52] LABS: ALT (SGPT) 36 U/L (0-35); AST (SGOT) 33 U/L (14-36); Acetaminophen < 10 ug/ml (10-30); Albumin 5.3 g/dl (3.5-5.0); Alcohol 18 mg/dl; Alkaline Phosphatase 85 U/L (38-126); Blood Urea Nitrogen 12 mg/dl (7-17); Calcium 10.6 mg/dl (8.4-10.2); Carbon Dioxide 20 mmol/L (22-30); Chloride 102 mmol/L (98-107); Estimated Creatinine Clearance 89 ml/min; Glucose 80 mg/dl (70-99); Potassium 4.1 mmol/L (3.5-5.1); Sodium 136 mmol/L (135-145); Total Bilirubin 0.3 mg/dl (0.2-1.3); Total Protein 8.7 g/dl (6.3-8.2); eGFR > 60.00
[2023-07-08] MEDS: TYLENOL 650 MG PO (18:08)
[2023-07-08] MEDS: ZOFRAN ODT (ORALLY DISINTEGRATING) 4 MG PO (18:08)
--- NOTE | 2023-07-08 18:10 | EDRN ---
spot worker Reema in room w/pt at this time.
[2023-07-08 18:34] LABS: Amphetamines Negative (Negative); Barbiturates Positive (Negative); Benzodiazepines Negative (Negative); Buprenorphine Negative (Negative); Cocaine Negative (Negative); Marijuana Negative (Negative); Methadone Negative (Negative); Methamphetamines Negative (Negative); Opiates Negative (Negative); Phencyclidine Negative (Negative); Tricyclic Antidepressants Negative (Negative)
[2023-07-08 18:50] VITALS: BP 159/108
[2023-07-08] MEDS: ATIVAN 1 MG PO (19:12)
[2023-07-08 23:49] VITALS: BP 125/85
[2023-07-09 08:00] VITALS: BP 142/74
[2023-07-09] MEDS: TYLENOL 650 MG PO (08:13)
[2023-07-09] MEDS: ATIVAN 1 MG PO (11:33)
== END 2023-07-09 11:43 ==
LOC: EMR 15:55
PROVIDERS: Physician Assistant; EMERGENCY PHYSICIAN Emergency Medicine; FAMILY PHYSICIAN Internal Medicine
DX: F10.10 Alcohol abuse, uncomplicated (principal); K21.9 Gastro-esophageal reflux disease without esophagitis; F41.9 Anxiety disorder, unspecified; G89.29 Other chronic pain; F17.200 Nicotine dependence, unspecified, uncomplicated; F31.9 Bipolar disorder, unspecified; R45.851 Suicidal ideations; Z87.440 Personal history of urinary (tract) infections; Z91.52 Personal history of nonsuicidal self-harm; Z98.1 Arthrodesis status
CPT/HCPCS: 99284; 80053; 80143; 80306; 82077; 85025